=== PATIENT | female | born 1940 | race Caucasian/White ===

== ENCOUNTER 2019-11-03 10:06 | Outpatient (CLI) | payer MEDICARE, SELFPAY ==
--- NOTE | ~2019-11-03 | XR_ITS ---
EXAMINATION: XR abdomen/kub 1V INDICATION: Left-sided abdominal pain TECHNIQUE: Supine views of the abdomen were obtained on 2 radiographs. COMPARISON: None FINDINGS: A 6 mm calcification projects between the left L4 and L5 transverse processes. There appear to be subtle stones in both kidneys which measure up to 4 mm on the left. Phleboliths are noted in t he left pelvis. There is severe lumbar spondylosis. Surgical clips project over the right proximal fe mur. There appear to be changes of mesh ventral hernia repair in the upper abdomen. IMPRESSION: 1. 6 mm calcification of the mid abdomen to the left of midline, possibly left ureteral stone. Reviewed, dictated and finalized at location A.
== END 2019-11-03 10:07 | disposition home or self-care (01) ==
PROVIDERS: PCP Physician Assistant; Visit Provider Physician Assistant
DX: R10.9 Unspecified abdominal pain (principal); R93.5 Abnormal findings on diagnostic imaging of other abdominal regions, including retroperitoneum
CPT/HCPCS: 74018

== ENCOUNTER → 2020-06-12 11:18 | Outpatient (CLI) | payer MEDICARE, SELFPAY ==
--- NOTE | ~2020-06-12 | XR_ITS ---
XR lumbar spine min 4V DATE: 06/12/2020 12:36 INDICATION: Right hip pain, low back pain. TECHNIQUE: Standing AP and standing flexion, extension and neutral lateral views. Coned lateral lumbo sacral view. COMPARISON: None FINDINGS: There is diffuse osteopenia. There is severe rotatory dextroscoliosis of the lower thoracic and lumbar spine. The severe degenerative disc disease throughout the lumbar spine and moderately prominent degenerativ e disc disease at L5-S1. Chronic probable compression fracture deformities of L2, L3, L4. Sacroiliac joints are intact. 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 NSICS TEAM DIRECTOR IMPRESSION: Severe rotatory dextro scoliosis of the lower thoracic and lumbar s pine Severe multilevel degenerative disc disease Probable chronic compression fracture deformities of L2, L3, L4 Osteopenia
--- NOTE | ~2020-06-12 | XR_ITS ---
XR hip RT min 2V 06/12/2020 12:36 Indication: Right hip pain Procedure: 2 views right hip Comparison: No prior studies for comparison. Findings: Mild osteoarthritis of the right hip. No acute fracture or traumatic malalignment. There ar e surgical clips overlying the right hip no significant soft tissue abnormality. No acute abnormality of the visualized pelvic structures. Impression: 1: Mild osteoarthritis of the right hip. Reviewed, dictated and finalized at location A. VIORAL HEALTH COUNSELOR Impression: 1: Mild osteoarthritis of the right hip.
== END ==
PROVIDERS: PCP Physician Assistant; Visit Provider Nurse Practitioner Family
DX: M25.551 Pain in right hip (principal); M54.5 Low back pain; M41.86 Other forms of scoliosis, lumbar region; M41.84 Other forms of scoliosis, thoracic region; M51.36 Other intervertebral disc degeneration, lumbar region; M85.88 Other specified disorders of bone density and structure, other site
CPT/HCPCS: 72110; 73502

== ENCOUNTER → 2020-07-19 10:26 | Outpatient (CLI) | payer MEDICARE, SELFPAY ==
--- NOTE | ~2020-07-19 | US_ITS ---
US renal BI 07/19/2020 10:54 Procedure: Realtime transabdominal ultrasound of the kidneys and bladder. Indication: Abnormal renal function study Comparison: No prior studies for comparison. Findings: Renal echotexture is normal bilaterally without hydronephrosis, contour deforming mass or r enal calculus. The right kidney measures 8.9 cm and left kidney measures 8.5 cm. Bladder within norm al limits. Impression: 1: Unremarkable renal ultrasound. No stones, masses or hydronephrosis. Reviewed, dictated and finalized at location B. S AND SERVICE REPRESENTATIVE Impression: 1: Unremarkable renal ultrasound. No stones, masses or hydronephrosis.
== END ==
PROVIDERS: Visit Provider Internal Medicine Nephrology
DX: R94.4 Abnormal results of kidney function studies (principal)
CPT/HCPCS: 76775

== ENCOUNTER → 2020-11-21 10:42 | Outpatient (CLI) | payer MEDICARE, SELFPAY ==
--- NOTE | ~2020-11-21 | XR_ITS ---
XR abdomen/kub 1V DATE: 11/21/2020 13:52 INDICATION: Renal stone TECHNIQUE: AP projection, 2 views COMPARISON: 11/03/2019 KUB 07/19/2020 bilateral renal ultrasound examination FINDINGS: There are multiple calcifications overlying both renal silhouettes, suggesting bilateral ne phrolithiasis. Noncontrast CT examination would be more sensitive and accurate for detection of urin praveen tract calculi. There is a prominent amount of feces in the ascending colon, but no bowel obstruction. No visceromegaly is detected. A cardiac pacemaker lead is noted. There is dextroscoliosis and severe degenerative disc disease throughout the lumbar spine. Surgical clips overlie the right hip. IMPRESSION: Probable bilateral calcified nephrolithiasis Reviewed, dictated and finalized at Location A. Reviewed, dictated and finalized at location A.
== END ==
PROVIDERS: PCP Physician Assistant; Visit Provider Internal Medicine Nephrology
DX: N20.0 Calculus of kidney (principal); M47.816 Spondylosis without myelopathy or radiculopathy, lumbar region; M41.9 Scoliosis, unspecified
CPT/HCPCS: 74018

== ENCOUNTER 2021-11-26 10:15 | Outpatient (RCR) | payer MEDICARE, SELFPAY | END 2022-02-24 23:59 | disposition home or self-care (01) | LOC: ANHBWCAUD 10:15 | PROVIDERS: PCP Family Medicine; Visit Provider Family Medicine | DX: Z46.1 Encounter for fitting and adjustment of hearing aid (principal) | CPT/HCPCS: 92593 ==

== ENCOUNTER 2022-01-03 10:21 | Outpatient (CLI) | payer MEDICARE, SELFPAY | END 2022-01-03 10:22 | disposition home or self-care (01) | LOC: ANHBWCAUD 10:27 | PROVIDERS: PCP Family Medicine | DX: H91.93 Unspecified hearing loss, bilateral (principal) | CPT/HCPCS: 92557; 92567 ==

== ENCOUNTER → 2022-01-16 10:15 | Outpatient (CLI) | payer MEDICARE, SELFPAY ==
--- NOTE | ~2022-01-16 | DEXA_ITS ---
Bone Density Report Name: JARED WRIGHT Age: 81 Sex: Female Ethnicity: White Date of : 1940 Indication: postmenopausal; screening for osteoporosis; height loss; history of glucocorticoids; Referring Provider: Kiley, Chang Roy Study: Bone densitometry was performed. Exam Date: January 16, 2022 Accession number: [id number] Bone Density: Region BMD T-score Z-score Classification AP Spine (L1, L2) 1.113 1.2 3.9 Normal Femoral Neck (Left) 0.620 -2.1 0.4 Osteopenia Total Hip (Left) 0.745 -1.6 0.7 Osteopenia Femoral Neck (Right) 0.593 -2.3 0.2 Osteopenia Total Hip (Right) 0.726 -1.8 0.5 Osteopenia Total Hip Mean 0.736 -1.7 0.6 Osteopenia World Health Organization criteria for BMD impression classify patients as: Normal (T-score at or above -1.0), Osteopenia (T-score between -1.0 and -2.5), or Osteoporosis (T-score at or below -2.5). 10-year Fracture Risk: FRAX not reported because: Treated for osteoporosis Clinical Information Provided by Patient: Has taken Glucocorticoids Is being treated for osteoporosis Has used the following medications: Fosamax (i.e. alendronate), Vitamin D, Calcium Patient maximum height was 63 Menopause Age: 47 Does not regularly consume dairy products Drinks caffeinated beverages Onset of menses at age 12 Number of children 2 Impression: The patient has low bone mass, based on the Right Femoral Neck T-score. The patient has risk factors, including: history of glucocorticoid therapy. Discussion: It is important to ask patients whether they are taking their medications and to encourage continued and appropriate compliance with their osteoporosis therapies to reduce fracture risk. It is also important to review their risk factors and encourage appropriate calcium and vitamin D intakes, exercise, fall prevention and other lifestyle measures. Follow-Up: Consider a repeat BMD and Vertebral Fracture Assessment (VFA) exam in 2 years or sooner if medically necessary, to reassess this patient's status. Reported by: [facility] on 01/16/2022 11:11:00 AM. Reviewed, dictated and finalized at location ALino MALIN
== END ==
PROVIDERS: PCP Family Medicine; Visit Provider Family Medicine
DX: Z78.0 Asymptomatic menopausal state (principal); M85.89 Other specified disorders of bone density and structure, multiple sites
CPT/HCPCS: 77080

== ENCOUNTER 2022-10-28 10:11 | Outpatient (RCR) | payer MEDICARE, SELFPAY | END 2023-01-26 23:59 | disposition home or self-care (01) | LOC: ANHBWCAUD 10:11 | PROVIDERS: PCP Family Medicine; Visit Provider Family Medicine | DX: Z46.1 Encounter for fitting and adjustment of hearing aid (principal) | CPT/HCPCS: V5267 ==

== ENCOUNTER 2025-01-17 10:09 | Outpatient (CLI) | payer MEDICARE, SELFPAY ==
--- OUTSIDE RECORDS SUMMARY | 2025-01-17 10:52 | XMS_ITS | Encounter Summary ---
Author Organization [facility] Address [address] [place] [address] Phone Care Team Providers Care Logger Name Role Phone Mario Franklin MD Primary Care Provider + Unknown, Notinfile Primary Care Provider Unavail able Mario Franklin MD Primary Care Provider + Unknown, Notinfile Primary Care Provider Unavail able Sandra, Aften L. CABLE FORMER Primary Care Provider [phone] Unknown, Notinfile Primary Care Provider Unavail able No, Physician Primary Care Provider [phone] Unknown, Notinfile Primary Care Provider Unavail able Sandra, Aften L. CABLE FORMER Primary Care Provider [phone] Unknown, Notinfile Primary Care Provider Unavail able Sandra, Aften L. CABLE FORMER Primary Care Provider [phone] Unknown, Notinfile Primary Care Provider Unavail able Sandra, Aften L. CABLE FORMER Primary Care Provider [phone] Unknown, Notinfile Primary Care Provider Unavail able Sandra, Aften L. CABLE FORMER Primary Care Provider [phone] Unknown, Notinfile Primary Care Provider Unavail able Unknown, Notinfile Primary Care Provider Unavail able Omer Guerrero Primary Care Provider [phone] Chang Cao MD Primary Care Provider [phone] Chang Cao MD Primary Care Provider [phone] Omer Guerrero Primary Care Provider Chang Cao MD Primary Care Provider Alena Meza RN Unavailable Unavailable Brittany Tucker RN Unavailable Unavaila Hipolito Lewis MD Primary Care Provider [phone] Nilesh Beaulieu MD Unavailable Nick Owen RN Unavailable [phone] Encounter Details Date Type Department Care Team (Late st Contact Info) Description 04/08/2017 Orders Only [facility] Provider, MD Cee [address] [place] [id number] Social History Tobacco Use Types Packs/Day Years Used Date Smoking Tobacco: Never Assessed Comments Unknown Sex and Gender Information Value Date Recorded Sex Assigned at Not on file Legal Sex Female 2:05 AM LANDCARE FACILITATOR Gender Identity Female 06/09/2023 3:00 PM LANDCARE FACILITATOR Sexual Orientation Not on file documented as of this encounter Plan of Treatment Not on file documented as of this encounter Procedures Procedure Name Priority Date/Time Associated Diagnosis Comments CARDIOLOGY REPORT 04/08/2017 documented in this encounter Results * CARDIOLOGY REPORT (04/08/2017) Anatomical Region Laterality Modality Other Narrative 04/08/2017 Ordered by an unspecified provider. Historical Provider [facility] CASSIDY RODRIGUEZ Final Result documented in this encounter Visit Diagnoses Not on filedocumented in this encounter Additional Health Concerns Infection Onset Date Last Indicated Resolved Time Exposure, COVID-19 Comment:Added automatically based on COVID19 lab answers indicating exposure risk 05/12/2022 05/12/2022 05/22/2022 3:[address] COVID: Suspected 05/12/2022 05/12/2022 05/12/2022 5:10 PM LANDCARE FACILITATOR documented as of this encounter Care Teams Logger Relationship Specialty Start Date End Date Mario Franklin MD PCP - General 03/09/17 08/16/17 Unknown, Notinfile PCP - General 08/17/17 10/05/17 Mario Franklin MD PCP - General Family Medicine 10/06/17 12/16/17 Unknown, Notinfile PCP - General 12/17/17 12/24/17 Gabriele Flores, CABLE FORMER [address] [facility] [address] [place] [address] PCP - General Nurse Practitioner 12/25/17 12/27/17 Unknown, Notinfile PCP - General 12/28/17 01/28/18 No, Physician PCP - General 01/29/18 02/02/18 Unknown, Notinfile PCP - General 02/03/18 02/03/18 Gabriele Flores, CABLE FORMER [address] [facility] [address] [place] [address] PCP - General Nurse Practitioner 02/04/18 02/04/18 Unknown, Notinfile PCP - General 02/05/18 02/10/18 Gabriele Flores, CABLE FORMER [address] [facility] [address] [place] [address] PCP - General Nurse Practitioner 02/11/18 02/18/18 Unknown, Notinfile PCP - General 02/19/18 04/20/18 Gabriele Flores, CABLE FORMER [address] [facility] [address] [place] [address] PCP - General Nurse Practitioner 04/21/18 10/18/18 Unknown, Notinfile PCP - General 10/19/18 10/25/18 Gabriele Flores CABLE FORMER PCP - General Nurse Practitioner 10/26/18 12/19/19 Unknown, Notinfile PCP - General 12/20/19 05/22/20 Unknown, Notinfile PCP - General 05/23/20 02/18/21 Omer Guerrero, PA [address] [place] [address] PCP - General Physician Basketball Assembler 02/19/21 03/19/21 Chang Cao MD [address] [facility] [address] [facility] [address] [place] [address] PCP - General Family Medicine 03/20/21 04/11/21 Chang Cao MD [address] [facility] [address] [facility] [address] [place] [address] PCP - General 04/12/21 04/29/21 Omer Guerrero, PA [address] [facility] [address] [facility] [address] [facility] [address] [place] [address] PCP - General 04/30/21 05/19/21 Chang Cao MD [address] [facility] [address] [facility] [address] [address] PCP - General Family Medicine 05/20/21 05/04/23 Hipolito Chowdhury MD [address] [place] [address] PCP - General Family Medicine 05/05/23 Alena Meza, wheel borer Failure Coordinator 01/07/22 Brittany Tucker, wheel borer Failure Coordinator 07/15/22 Nilesh Beaulieu MD [address] [place] [address] Consulting Physician Urology 09/15/24 Nick Owen, RN [address] [place] [address] Hair Colorist 09/16/24 10/11/24 documented as of this encounter
--- OUTSIDE RECORDS SUMMARY | 2025-01-17 10:52 | XMS_ITS | Clinical Summary ---
Author Organization [facility] Address [address] [place] [address] Care Team Providers Care Director Project Management Name Role Phone None, Provider MD Primary Care Provider Unavaila ble Allergies No known active allergies Medications menthol 5 % Patch Ac tive Methylcellulose, Laxative, (CITRUCEL FIBERSHAKE OR) 1 capsule. Acti ve Multiple Vitamins-Minerals (MULTIVITAMIN ADULT EXTRA C OR) 1 tablet. Ac tive TRIAMCINOLONE ACETONIDE 0.1% CREAM/0.1% OINTMENT MIXTURE 1 applicator. Active acetaminophen controlled release (TYLENOL 8 HOUR ARTHRITIS PAIN) 650 MG Tab CR Active aspirin 81 MG tablet Active Calcium Carb-Cholecalcifer ol (CALCIUM-VITAMIN D) 500-200 MG-UNIT tablet 1 tablet. Active loratadine 10 MG tablet Take by mouth daily. 4 Active sodium chloride (OCEAN NASAL SPRAY) 0.65 % nasal spray 1 Active aluminum hydroxide-mag trisilicate 80-20 MG Chew Tab Chew 1 tablet by mouth. Active oyster shell calcium-vitamin D 500-200 MG-UNIT tablet 1 tablet 2 (two) times daily. Active Brouiql-Fopoupr-Np thyl Regino (MEDICATED PAIN RELIEVING) 1.2-5.7-6.3 % Patch Active fluticasone propionate 50 MCG/ACT nasal sprayIndications:A llergic rhinitis, unspecified seasonality, unspecified trigger 2 sprays by Nasal route daily. 16 g 5 9 Active losartan 50 MG tabletIndications: Mitral valve disorder Take 0.5 tablets (25 mg total) by mouth daily. 90 tablet 1 9 Active sumatriptan 25 MG tabletIndications: Chronic migraine without aura without status migrainosus, not intractable Take 1 tablet (25 mg total) by mouth 2 (two) times daily as needed. 30 tablet 5 9 Active metoprolol tartrate 25 MG tabletIndications: 1 twice daily am and pm. Take 1 tablet (25 mg total) by mouth daily. Indications: 1 twice daily am and pm. 90 tablet 1 9 Active estradiol (ESTRACE VAGINAL) 0.1 MG/GM vaginal creamIndications:V aginal dryness, menopausal Place 0.5 g vaginally twice a week. 42.5 g 0 Active LOVASTATIN 20 MG tabletIndications: Hyperlipidemia, unspecified hyperlipidemia type TAKE ONE TABLET BY MOUTH ONCE DAILY WITH SUPPER 90 tablet 2 0 Active OMEPRAZOLE 40 MG capsuleIndications :Gastroesophageal reflux disease without esophagitis TAKE ONE CAPSULE BY MOUTH ONCE DAILY 90 capsule 0 Active traMADol 50 MG tabletIndications: Chronic Pain Indications: Chronic Pain TAKE 1 TO 2 TABLETS BY MOUTH EVERY 6 HOURS NEEDED FOR PAIN DUE FOR APPT BEFORE NEXT REFILL 180 tablet 0 Active ALENDRONATE 70 MG tabletIndications: Osteoporosis TAKE ONE TABLET BY MOUTH EVERY 7 DAYS 4 tablet 0 Active LEVOTHYROXINE 50 MCG tabletIndications: 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 TAKE 1 AND 1/2 TABLETS BY MOUTH EVERY MORNING 135 tablet 0 Active MELOXICAM 15 MG tabletIndications: Primary osteoarthritis of both knees TAKE 1 TABLET BY MOUTH EVERY DAY 30 tablet 1 Active Active Problems Problem Noted Date Diagnosed Date ICD (implantable cardioverter-defibrillator) in place 04/19/2019 CKD (chronic kidney disease) 11/19/2018 Pacemaker 11/19/2018 H/O mitral valve repair 11/19/2018 Primary osteoarthritis of left knee 10/26/2018 Overview (01/26/2019): Overview: Added automatically from request for surgery [id number] Allergic rhinitis, unspecifi ed seasonality, unspecified trigger 05/25/2018 Chronic migraine without aur a without status migrainosus, not intractable 05/25/2018 Gastroesophageal reflux disease without esophagi tis 05/25/2018 NICM (nonischemic cardiomyopathy) ([facility]) 04/08/2018 Decreased GFR 07/21/2017 Presence of prosthetic heart valve 03/11/2017 Overview (05/25/2018): Defibrillator Obesity 12/04/2016 Physical deconditioning 12/04/2016 Dyspnea on exertion 09/15/2016 Nonsustained ventricular tachycardia ([facility]) 04/03/2015 ROSA ISELA (obstructive sleep apnea) 07/17/2014 CHF (congestive heart failure) ([facility]) 07/17/2014 Chronic systolic heart failure ([facility]) 07/09/2014 Hyperlipidemia 05/13/2012 Hypertension 05/13/2012 Hypothyroidism 05/13/2012 Osteoarthrosis 05/13/2012 Mitral valve disorder 04/27/2012 LV dysfunction 04/15/2012 Atherosclerosis of arteries of extremities 01/21 Immunizations Immunization Administration Dates Next Due Influenza (Generic) 03/09/2018,02/19/2015 Influenza Adult (Generic) 02/15/2019,02/20/2014, 02/11/2013,03/03/2012 Pneumococcal (Pneumovax 23) 11/18/2017, 4 Pneumococcal (Prevnar 13) 04/13/2014 Family History Medical History Relation Comments Breast Cancer Mother Colon Cancer Mother Heart Disease Paternal Grandfather Relation Status Comments Father Mother Paternal Grandfather Social History Tobacco Use Types Packs/Day Years Used Date Smoking Tobacco: Never Smokeless Tobacco: Never Alcohol Use Standard Drinks/Week Comments No 0 (1 standard drink = 0.6 oz pur e alcohol) AUDIT-C Answer Date Recorded Frequency of Alcohol Consumption Never 05/25/2018 Average Number of Drinks Not on file 018 Frequency of Binge Drinking Not on file 05/08 Comments No Sex and Gender Information Value Date Recorded Sex Assigned at Not on file Legal Sex Female 9:55 PM CDT Gender Identity Not on file Sexual Orientation Not on file Last Filed Vital Signs Vital Sign Reading Time Taken Comments Blood Pressure 122/90 06/29/2019 10:12 AM FACILITY TECHNICIAN Pulse 77 06/29/2019 10:12 AM FACILITY TECHNICIAN Temperature 36.7 C (98 F) 06/29/2019 10:12 AM FACILITY TECHNICIAN Respiratory Rate 20 06/29/2019 10:12 AM FACILITY TECHNICIAN Oxygen Saturation 98% 06/29/2019 10:12 AM FACILITY TECHNICIAN Inhaled Oxygen Concentration - - Weight 93 kg (205 lb) 06/29/2019 10:12 AM FACILITY TECHNICIAN Height 160 cm (5' 3) 06/29/2019 10:12 AM FACILITY TECHNICIAN Body Mass Index 36.31 06/29/2019 10:12 AM FACILITY TECHNICIAN Plan of Treatment Health Maintenance Due Date Last Done Comments ASCVD Statin 1940 DTaP, Tdap and Td Vaccines (1 - Tdap) 1957 Zoster Vaccines (1 of 2) 1988 Annual Medicare Wellness Visit 2003 RSV Immunization or 60+ Years (1 - 1-dose 75+ series) 2013 ASCVD LDL 06/29/2020 06/29/2019, 06/08, 06/23/2018, Additional history exists COVID-19 Vaccine ( season) 2024 07/13/2020 Pneumococcal Vaccine: 50+ Years Completed 11/18/2017, 04/13/2014, 04/13/2014 Meningococcal B Vaccine Aged Out No l onger eligible based on patient's age to complete this topic Meningococcal Vaccine Aged Out No james melani eligible based on patient's age to complete this topic RSV Immunizations Under 20 Months Aged Out No longer eligible based on patient's age to complete this topic Procedures Procedure Name Priority Date/Time Associated Diagnosis Comments LIPID PANEL Routine 06/29/2019 9:04 AM FACILITY TECHNICIAN Hyperlipidemia, unspecified hyperlipidemia type from Last 3 Months or Most Recently Relevant to Health Maintenance Results * (ABNORMAL) LIPID PANEL (06/29/2019 9:04 AM FACILITY TECHNICIAN) CHOLESTEROL 206(H) <200 MG/DL 06/29/2019 10:36 AM FACILITY TECHNICIAN [facility] TRIGLYCERIDES 203(H) <150 MG/DL 06/29/2019 10:36 AM FACILITY TECHNICIAN [facility] HDL 64 >40.0 MG/DL 06/29/2019 10:36 AM [facility] LDL (CALCULATED) 101(H) <100 MG/DL 06/29/2019 10:36 AM [facility] NON HDL CHOLESTEROL 142(H) <130 MG/DL 06/29/2019 10:36 AM [facility] Comment: NOTE: WHEN THE TRIGLYCERIDES ARE >200 mg/dL, NON HDL C IS A SECONDARY TARGET OF THERAPY, WITH A GOAL 30 mg/dL HIGHER THAN THE IDENTIFIED LDL C GOAL. CHOL/HDL RATIO 3.2 0.0 - 4.5 06/29/2019 10:36 AM [facility] VLDL CALCULATION 41 5 - 55 MG/DL 06/29/2019 10:36 AM [facility] LIPID INTERPRETATION 06/29/2019 10:36 AM [facility] Comment: [facility] CONCENSUS REPORT RECOMMENDATIONS: ADULT CHILD LOW RISK: CHOLESTEROL <200 <170 TRIGLYCERIDE <150 --- HDL >=60 --- LDL <100 <110 BORDERLINE: CHOLESTEROL 200-239 170-199 TRIGLYCERIDE 150-199 --- HDL 40-59 --- LDL 100-159 110-129 HIGH RISK: CHOLESTEROL >=240 >=200 TRIGLYCERIDE >=200 --- HDL <40 --- LDL >=160 >=130 06/29/2019 9:04 AM FACILITY TECHNICIAN Gabriele Flores RELEASE ENGINEER LABORATORY Final Result [facility] [address] [place] [address], from Last 3 Months or Most Recently Relevant to Health Maintenance Insurance MED [facility] MEDICARE Care Teams Director Project Management Relationship Specialty Start Date End Date None, Provider, PCP - General 12/30/19
--- OUTSIDE RECORDS SUMMARY | 2025-01-17 10:52 | XMS_ITS | Encounter Summary ---
Author Organization [facility] Healthcare Address [address] [place] [address] Care Team Providers Care International Affairs Vice President Name Role Phone Alena Meza RN Unavailable Unavailable Brittany Tucker RN Unavailable Unavaila Hipolito Lewis MD Primary Care Provider [phone] Nilesh Beaulieu MD Unavailable Reason for Visit * Reason Onset Date Comments Additional Services Or Orders 01/12/2025 Encounter Details Date Type Department Care Team (Late st Contact Info) Description 01/12/2025 Telephone [facility]icians [address] [place] [address] Hipolito Chowdhury MD [address] [place] [address] [place] [address] Additional Services Or Orders Social History Tobacco Use Types Packs/Day Years Used Date Smoking Tobacco: Never Passive Smoke Exposure: Past Smokeless Tobacco: Never Alcohol Use Standard Drinks/Week Comments No 0 (1 standard drink = 0.6 oz pur e alcohol) [facility] Utilities Answer Date Recorded In the past 12 months has e electric, gas, oil, or water company threatened to shut off services in your home? No 10/12/2024 Social Connection and Isolation Panel Answer Date Recorded In a typical week, how many times do you talk on the phone with family, friends, or neighbors? More than three times a week 10/12/2024 How often do you get togethe r with friends or relatives? More than three times a week 10/12/2024 How often do you attend [facility] or yazdanism services? Never 10/12/2024 Do you belong to any clubs o r organizations such as alevism groups, unions, fraternal or athletic groups, or school groups? No 10/12/2024 How often do you attend meet ings of the clubs or organizations you belong to? Never 10/12/2024 Are you , , di vorced, , never , or living with a partner? 10/12/2024 AUDIT-C Answer Date Recorded Q1: How often do you have a drink containing alcohol? Never 05/06/2023 Q2: How many drinks containi ng alcohol do you have on a typical day when you are drinking? Patient does not drink Q3: How often do you have si x or more drinks on one occasion? Never 05/06/2023 Overall Financial Resource Strain (CARDIA) Answe r Date Recorded How hard is it for you to pa y for the very basics like food, housing, medical care, and heating? Not very hard 10/12/2024 PHQ-2 Answer Date Recorded PHQ-2 Total Score (If total score is 3 or more points, staff should administer the PHQ-9) 0 05/03/2024 Hunger Vital Sign Answer Date Recorded Within the past 12 months, y ou worried that your food would run out before you got the money to buy more. Never true 10/13/19 25 Within the past 12 months, t he food you bought just didn't last and you didn't have money to get more. Never true 10/12/2024 PRAPARE - Transportation Answer Date Re corded In the past 12 months, has l ack of transportation kept you from medical appointments or from getting medications? No 12/2024 In the past 12 months, has l ack of transportation kept you from meetings, work, or from getting things needed for daily living? No 10/12/2024 Housing Stability Vital Sign Answer Abdullahi e Recorded In the last 12 months, was t here a time when you were not able to pay the mortgage or rent on time? No 10/12/2024 In the past 12 months, how m any times have you moved where you were living? 0 10/12/2024 At any time in the past [address] [facility], were you homeless or living in a senior care (including now)? No 10/12/2024 Personal Safety Answer Date Recorded Have you ever been in or are you currently in a harmful physical or emotional relationship or is someone making you feel afraid or unsafe? Denies 09/11/2024 Comments No Sex and Gender Information Value Date Recorded Sex Assigned at Not on file Legal Sex Female 2:05 AM ELECTRICAL ELECTRONICS ENGINEER Gender Identity Female 06/09/2023 3:00 PM ELECTRICAL ELECTRONICS ENGINEER Sexual Orientation Not on file Occupation Industry Job Start Date Job End Date retired Not on file Not on file Not on file documented as of this encounter Miscellaneous Notes * Telephone Encounter - Augusto Burkett - 01/12/2025 1:38 PM CDT Medical Question/Miscellaneous Caller???s Concern: Spoke with [facility] calling with patient there to be seen and they do not have orders for her right knee and back . Warm transfer to backline Does message need to be routed? No documented in this encounter Plan of Treatment Not on file documented as of this encounter Visit Diagnoses Not on filedocumented in this encounter Care Teams International Affairs Vice President Relationship Specialty Start Date End Date Hipolito Chowdhury MD [address] [place] [address] PCP - General Family Medicine 05/05/23 Alena Meza, linotypist Failure Coordinator 01/07/22 Brittany Tucker, linotypist Failure Coordinator 07/15/22 Nilesh Beaulieu MD [address] [place] [address] Consulting Physician Urology 09/15/24 documented as of this encounter
--- OUTSIDE RECORDS SUMMARY | 2025-01-17 10:52 | XMS_ITS | Encounter Summary ---
Author Organization [facility] Healthcare Address [address] [place] [address] Care Team Providers Care Section Housekeeper Name Role Phone Alena Meza RN Unavailable Unavailable Brittany Tucker RN Unavailable Unavaila Hipolito Lewis MD Primary Care Provider [phone] Nilesh Beaulieu MD Unavailable Encounter Details Date Type Department Care Team (Late st Contact Info) Description 01/15/2025 Results Follow-Up [facility] of [address] [address] Hipolito Chowdhury MD [address] [place] [id number] Lipid panel, Comprehensive metabolic panel, CBC with auto differential, Additional followed-up results: 2 Social History Tobacco Use Types Packs/Day Years Used Date Smoking Tobacco: Never Passive Smoke Exposure: Past Smokeless Tobacco: Never Alcohol Use Standard Drinks/Week Comments No 0 (1 standard drink = 0.6 oz pur e alcohol) [facility] Utilities Answer Date Recorded In the past 12 months has [employer] electric, gas, oil, or water company threatened [...] week 10/12/2024 How often do you attend [facility] or taoism services? Never 10/12/2024 Do you belong to any clubs o r organizations such as samaritan groups, unions, fraternal or athletic groups, or [...] any time in the past 12 m [facility], were you homeless or living in a penitentiary (including now)? No 10/12/2024 Personal Safety Answer Date Recorded Have you ever been in or are you currently in a harmful physical or emotional relationship or is someone making you feel afraid or unsafe? Denies 09/11/2024 Comments No Sex and Gender Information Value Date Recorded Sex Assigned at Not on file Legal Sex Female 2:05 AM [employer] SCOUT Gender Identity Female 06/09/2023 3:00 PM [employer] Sexual Orientation Not on file Occupation Industry Job Start Date Job End Date retired Not on file Not on file Not on file documented as of this encounter Plan of Treatment Not on file documented as of this encounter Visit Diagnoses Not on filedocumented in this encounter Care Teams Section Housekeeper Relationship Specialty Start Date End Date Hipolito Chowdhury MD [address] [place] [address] PCP - General Family Medicine 05/05/23 Alena Meza, nutrition associate Failure Coordinator 01/07/22 Brittany Tucker, nutrition associate Failure Coordinator 07/15/22 Nilesh Beaulieu MD [address] [place] [address] Consulting Physician Urology 09/15/24 documented as of this encounter
--- OUTSIDE RECORDS SUMMARY | 2025-01-17 10:52 | XMS_ITS | Encounter Summary ---
Author Organization [facility] Healthcare Address [address] [place] [address] Care Team Providers Care Coal Trimmer Machine Operator Name Role Phone Alena Meza RN Unavailable Unavailable Brittany Tucker RN Unavailable Unavaila Hipolito Lewis MD Primary Care Provider [phone] Nilesh Beaulieu MD Unavailable Encounter Details Date Type Department Care Team (Late st Contact Info) Description 11/15/2024 Results Follow-Up [facility] [place] [address] [place] [address] Shagufta Leo, SOFTWARE INTEGRATION DEVELOPER [address] [place] [address] Urine culture Urine, clean voided Social History Tobacco Use Types Packs/Day Years Used Date Smoking Tobacco: Never Passive Smoke Exposure: Past Smokeless Tobacco: Never Alcohol Use Standard Drinks/Week Comments No 0 (1 standard drink = 0.6 oz pur e alcohol) [facility] Utilities Answer Date Recorded In the past 12 months has [employer], gas, oil, or water [employer] threatened to shut off services in your [...] week 10/12/2024 How often do you attend [facility] or adventism services? Never 10/12/2024 Do you belong to any clubs o r organizations such as adventism groups, unions, fraternal or athletic groups, or [...] any time in the past 12 m [facility], were you homeless or living in a snf (including now)? No 10/12/2024 Personal Safety Answer Date Recorded Have you ever been in or are you currently in a harmful physical or emotional relationship or is someone making you feel afraid or unsafe? 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 documented in this encounter Plan of Treatment Not on file documented as of this encounter Visit Diagnoses Not on filedocumented in this encounter Care Teams Coal Trimmer Machine Operator Relationship Specialty Start Date End Date Hipolito Chowdhury MD [address] [place] [address] PCP - General Family Medicine 05/05/23 Alena Meza, adjunct political science instructor Failure Coordinator 01/07/22 Brittany Tucker, adjunct political science instructor Failure Coordinator 07/15/22 Nilesh Beaulieu MD [address] [place] [address] Consulting Physician Urology 09/15/24 documented as of this encounter
--- OUTSIDE RECORDS SUMMARY | 2025-01-17 10:52 | XMS_ITS | Encounter Summary ---
Author Organization [facility] Healthcare Address [address] [place] [address] Care Team Providers Care Network Security Administrator Name Role Phone Alena Meza RN Unavailable Unavailable Brittany Tucker RN Unavailable Unavaila Hipolito Lewis MD Primary Care Provider [phone] Nilesh Beaulieu MD Unavailable Encounter Details Date Type Department Care Team (Late st Contact Info) Description 01/13/2025 Orders Only [facility] of [address] [place] [address] Hipolito Chowdhury MD [address] [place] [address] Social History Tobacco Use Types Packs/Day Years Used Date Smoking Tobacco: Never Passive Smoke Exposure: Past Smokeless Tobacco: Never Alcohol Use Standard Drinks/Week Comments No 0 (1 standard drink = 0.6 oz pur e alcohol) [facility] Utilities Answer Date Recorded In the past 12 months has [employer], gas, oil, or water [employer] threatened to shut off services in your [...] week 10/12/2024 How often do you attend [facility] or holiness services? Never 10/12/2024 Do you belong to any clubs o r organizations such as hoahaoism groups, unions, fraternal or athletic groups, or [...] time in the past [address] [facility], were you homeless or living in a prison (including now)? No 10/12/2024 Personal Safety Answer Date Recorded Have you ever been in or are you currently in a harmful physical or emotional relationship or is someone making you feel afraid or unsafe? Denies 09/11/2024 Comments No Sex and Gender Information Value Date Recorded Sex Assigned at Not on file Legal Sex Female 2:05 AM DRAFTER AUTOMOTIVE DESIGN Gender Identity Female 06/09/2023 3:00 PM DRAFTER AUTOMOTIVE DESIGN Sexual Orientation Not on file Occupation Industry Job Start Date Job End Date retired Not on file Not on file Not on file documented as of this encounter Ordered Prescriptions Prescription Sig Dispense Quantity Refills Last Filled Start Date End Date methylPREDNISolone (MEDROL DOSEPACK) 4 mg Dosepack Take as directed on package. 21 tablet 01/13/2025 5 documented in this encounter Plan of Treatment Not on file documented as of this encounter Visit Diagnoses Not on filedocumented in this encounter Care Teams Network Security Administrator Relationship Specialty Start Date End Date Hipolito Chowdhury MD [address] [place] [address] PCP - General Family Medicine 05/05/23 Alena Meza, software support analyst Failure Coordinator 01/07/22 Brittany Tucker, software support analyst Failure Coordinator 07/15/22 Nilesh Beaulieu MD [address] [place] [address] Consulting Physician Urology 09/15/24 documented as of this encounter
--- OUTSIDE RECORDS SUMMARY | 2025-01-17 10:52 | XMS_ITS | Clinical Summary ---
Author Organization [facility] Address [address] [place] [address] Care Team Providers Care Math And Physics Instructor Name Role Phone Alena Meza RN Unavailable Unavailable Brittany Tucker RN Unavailable Unavaila Hipolito Lewis MD Primary Care Provider [phone] Nilesh Beaulieu MD Unavailable Allergies No known active allergies Medications multivitamin capsuleIndication s:Vitamin Deficiency Prevention Take 1 capsule by mouth every morning Phytomulti (Metagenics) Active aspirin 81 mg enteric coated tabletIndications :Pacemaker/ Defibrillator Take 1 tablet (81 mg total) by mouth every morning Active acetaminophen (TYLENOL) 500 mg tablet Take 2 tablets (1,000 mg total) by mouth every 6 (six) hours as needed for pain Takes two tabs usually around mid day for arthritis or sometimes in middle of night Active metoprolol XL (TOPROL-XL) 50 mg extended release tablet TAKE 1 TABLET BY MOUTH EVERY DAY 90 tablet 3 024 Active levothyroxine (SYNTHROID) 75 mcg tabletIndications :Hypothyroidism, unspecified Take 1 tablet (75 mcg total) by mouth daily 100 tablet 1 024 Active albuterol HFA (PROVENTIL HFA,VENTOLIN HFA,PROAIR HFA) 90 mcg/actuation inhalerIndication s:Shortness of breath Inhale 2 puffs every 4 (four) hours as needed for wheezing or shortness of breath 1 each 025 Active irbesartan (AVAPRO) 150 mg tablet Take 1 tablet (150 mg total) by mouth nightly 90 tablet 3 025 2025 Active miconazole 2 % powderIndications :tinea corporis Apply topically 2 (two) times a day 70 g 025 Active hydroCHLOROthiazi de 12.5 mg tablet Take 1 tablet (12.5 mg total) by mouth daily 30 tablet 11 025 2025 Active UNABLE TO FIND Metagenics UltraFlora Balance Probiotic Active calcium-magnesium -zinc 333-133-5 mg tablet Take 1 tablet by mouth daily Active omeprazole (PriLOSEC) 40 mg capsule TAKE 1 CAPSULE (40 MG TOTAL) BY MOUTH EVERY MORNING. 90 capsule 1 025 Active lovastatin (MEVACOR) 40 mg tabletIndications :Essential (primary) hypertension TAKE 1 TABLET BY MOUTH EVERY DAY 90 tablet 1 025 Active cetirizine (ZyrTEC) 10 mg tablet Take 1 tablet (10 mg total) by mouth daily Active dicyclomine (BENTYL) 10 mg capsule Take 1 capsule (10 mg total) by mouth 3 (three) times a day as needed (abdominal cramping) 90 capsule 025 Active traMADoL (ULTRAM) 50 mg tabletIndications :Primary osteoarthritis of left knee Take 1-2 tablets by mouth every 8 hours as needed for arthritis pain. Maximium of 4 tablets (200mg/day) every 24 hours. 120 tablet 025 Active methylPREDNISolon e (MEDROL DOSEPACK) 4 mg Dosepack Take as directed on package. 21 tablet 025 2024 Active mag/aluminum/sod bicarb/alginc (GAVISCON ORAL) Take 1 tablet by mouth as needed (Heartburn) 2024 Discontinued(T herapy completed) magnesium oxide 400 mg magnesium tabletIndications :hypomagnesemia Take 1 tablet by mouth every morning 023 2024 Discontinued(T herapy completed) fexofenadine (ALBERTA) 180 mg tabletIndications :Seasonal Allergic Rhinitis Take 1 tablet (180 mg total) by mouth every morning 2024 Discontinued(T herapy completed) lovastatin (MEVACOR) 40 mg tabletIndications :Essential (primary) hypertension TAKE 1 TABLET BY MOUTH EVERY DAY 100 tablet 025 2024 Discontinued estradioL (VAGIFEM) 10 mcg tabletIndications :Postmenopausal Urethral Atrophy Insert 1 tablet (10 mcg total) into the vagina 2 (two) times a week 24 tablet 025 2024 Discontinued(T herapy completed) traMADoL (ULTRAM) 50 mg tabletIndications :Primary osteoarthritis of left knee Take 1 tablet (50 mg total) by mouth every 8 (eight) hours as needed for pain 60 tablet 025 2024 Discontinued(R eorder) Active Problems Problem Noted Date Diagnosed Date Asymptomatic menopausal state 01/15/2025 Assessment & Plan (01/15/2025 11:53 AM CDT): Reviewed bone denisty and will montior ersponse. Reviewed calcium and vitamin d supplementation. Sensorineural hearing loss (SNHL) of both ears 0 01/15/2025 Assessment & Plan (01/15/2025 11:53 AM CDT): Continues f/u with audilogy and montio rerspnose. Hypertension, essential 01/15/2025 Assessment & Plan (01/15/2025 11:53 AM CDT): Continues on hctz, irbesartan and metoprolol xl and will follow resopnse. Degeneration of intervertebr al disc of lumbar region with discogenic back pain 01/15/2025 Assessment & Plan (01/15/2025 11:54 AM CDT): Lumbar ddd and supportive care measures. Reviweed medrol and add pt and chiro referral for supportive care. No evidence of cauda equina. Irritable bowel syndrome 01/15/2025 Assessment & Plan (01/15/2025 11:54 AM CDT): Continues on dicyclomine. No blood in the stools, no blood in the urine. Cystitis 09/28/2024 Assessment & Plan (09/28/2024 10:38 AM CDT): Continue to push fluids and enocurage resumption of estradiol and f/u with urology. Right middle lobe pulmonary nodule 09/28/2024 BMI 37.0-37.9, adult 09/28/2024 Pseudomonas urinary tract infection 09/15/[address] 09/15/2024 Assessment & Plan (09/28/2024 10:38 AM CDT): Repeat CT chest in 3 months and monitor respnose. Acute cystitis with hematuria 09/11/2024 Medicare annual wellness visit, subsequent 05/03 Assessment & Plan (05/03/2024 11:00 AM PICK PULLING MACHINE OPERATOR): Focus of exam is prevnetative in nature. Reviewed iimmunizationis, reviewed sun/skin cancer screening Reivewede fall prevention. Reviewed age and comorbid appropriate screening recommendations. Continue f/u with urology. Lactose intolerance 05/03/2024 Assessment & Plan (05/03/2024 11:01 AM PICK PULLING MACHINE OPERATOR): NOting some post dairy gi intolerance and will check for lactose intolerance as she associates with dairy but it is something she truly enjoys eating and drinking. Other gastritis without bleeding 05/03/2024 Assessment & Plan (05/03/2024 11:01 AM PICK PULLING MACHINE OPERATOR): As above. Severe obesity (BMI 35.0-39.9) with comorbidity 05/03/2024 Assessment & Plan (09/28/2024 10:39 AM CDT): Encourage helathy food choices and will monitor response. Assessment & Plan (05/03/2024 11:01 AM PICK PULLING MACHINE OPERATOR): Encourage 150min/week aerobic exericse. Healthy food chcioes BMI 38.0-38.9,adult 05/03/2024 Severe obesity 02/02/2024 Pelvic floor dysfunction in female 01/08/2024 Assessment & Plan (01/08/2024 5:26 PM CDT): On examination, we elicited pain to palpation of the pelvic floor muscles. We discussed the role that her pelvic floor muscle dysfunction is likely playing in her urinary symptoms. Management options for levator ani/obturator pain/spasm were discussed including pelvic floor physical therapy and vaginal icing. She will consider PFPT pending transportation, vaginal icing supplies were provided. Given her CKD, she is not a good candidate for NSAIDs. Vaginal atrophy 01/08/2024 Assessment & Plan (01/08/2024 5:28 PM CDT): -We discussed use of vaginal estrogen cream. I discussed the WHI study and the risks of systemic estrogen use and explained that with vaginal application minimal systemic absorption of estrogen occurs. We discussed vaginal atrophy and the effect a hypoestrogenic state can have on vaginal dryness, dyspareunia, risk of erosion, recurrent UTIs, and cystitis., I recommend starting vaginal estrogen cream nightly x 2 weeks and then decreasing to 2-3x/week.. At the end of the discussion the patient desires to use vaginal estrogen. -she has estrogen cream at home but finds applicator difficult to use, recommend switching to vaginal estrogen suppository (Imvexxy). Patient is amenable and Rx sent. IC (interstitial cystitis) 03/03/2023 Morbid (severe) obesity due to excess calories 1 Recurrent UTI 06/12/2021 Assessment & Plan (05/03/2024 10:59 AM PICK PULLING MACHINE OPERATOR): COntinue f/u with [facility] and continue on vaginal estradiol and methenamine. Assessment & Plan (01/08/2024 5:25 PM CDT): She has a h/o multiple UTIs and referred to Urogynecology by infectious disease specialist Palmira Mg MD for consultation regarding rule out pelvic floor dysfunction in setting of recurrent UTI symptoms. -today's findings include incomplete bladder emptying as well as pelvic floor myofascial pain indicative of pelvic floor dysfunction as contributing factor in pelvic pressure/burning. We discussed that she likely achieves symptomatic improvement while on abx due to anti-inflammatory properties of antibiotic. -she is using the following UTI prevention strategies: VET (see below) and D- Mannose -she denies urinary symptoms that are different from baseline, urine sample not sent at today's visit Hyperkalemia 04/30/2021 Assessment & Plan (04/30/2021 7:39 PM PICK PULLING MACHINE OPERATOR): Prior to procedure. Suspect related to K Citrate (for kidney stones) and CKD4. -Hold K Citrate -Hold losartan tonight -Renal diet -Check BMP tonight, if still elevated, check EKG -Montor on tele. Assessment & Plan (04/30/2021 7:37 PM PICK PULLING MACHINE OPERATOR): Prior to procedure. Suspect related to K Citrate (for kidney stones) and CKD4. -Hold K Citrate -Hold losartan tonight -Renal diet -Check BMP tonight, if still elevated, check EKG -Montor on tele. Renal stones 04/30/2021 Assessment & Plan (04/30/2021 7:39 PM PICK PULLING MACHINE OPERATOR): Recently started on K citrate for renal stones. However now hyperkalemic -Hold k citrate for now. Assessment & Plan (04/30/2021 7:38 PM PICK PULLING MACHINE OPERATOR): Recently started on K citrate for renal stones. However now hyperkalemic -Hold k citrate for now. Renal lesion 04/30/2021 Assessment & Plan (04/30/2021 7:41 PM PICK PULLING MACHINE OPERATOR): Hypoattenuating left renal lesion suspected adenoma on CT. -Needs follow up with PCP for ongoing monitoring. PVC (premature ventricular contraction) 03/05/20 Overview (03/05/2021): Added automatically from request for surgery [id number] Assessment & Plan (05/01/2021 12:24 PM PICK PULLING MACHINE OPERATOR): 15-20% PVC burden on recent holter. [place] to be probable cause contributing to NICM. S/P PVC ablation 04/30/[address] Hess. -Start Eliquis 2.5mg BID (Age >80, Cr > 1.5) -No acute tele events overnight, still some PVCs. Groin sites ok - DC today Assessment & Plan (04/30/2021 7:32 PM PICK PULLING MACHINE OPERATOR): 15-20% PVC burden on recent holter. [place] to be probable cause contributing to NICM. S/P PVC ablation 04/30/[address] Hess. -Start Eliquis 2.5mg BID (Age >80, Cr > 1.5) -Monitor on telemetry and monitor access sites overnight -Will resume home cardiac meds (metoprolol) however hold losartan given hyperkalemia recently. Stage 3b chronic kidney disease 07/06/2020 ICD (implantable cardioverter-defibrillator) in place 04/19/2019 Assessment & Plan (05/03/2024 10:59 AM PICK PULLING MACHINE OPERATOR): Stable and will montior response. Pacemaker 11/19/2018 Class 2 severe obesity with serious comorbidity and body mass index (BMI) of 38.0 to 38.9 in adult 11/19/2018 Assessment & Plan (04/30/2021 7:39 PM PICK PULLING MACHINE OPERATOR): BMI 38.10 -Would benefit from outpatient weight loss -Continue PT S/P MVR (mitral valve replacement) 11/19/2018 Assessment & Plan (09/28/2024 10:38 AM CDT): WIll follow response. No s/s of fluid ovelroad. Assessment & Plan (05/03/2024 10:58 AM PICK PULLING MACHINE OPERATOR): NO s/s of fluid overload. Stage 4 chronic kidney disease 11/19/2018 Assessment & Plan (09/28/2024 10:37 AM CDT): Continue to support aggressive hydration. Normalizing / returning CR to baseline s/p hospitalization. Assessment & Plan (05/03/2024 10:58 AM PICK PULLING MACHINE OPERATOR): COtinue to follow with Dr. Taylor and reivewed hydration. WIll montior response. Assessment & Plan (04/30/2021 7:39 PM PICK PULLING MACHINE OPERATOR): Baseline Cr ~1.5. At baseline -Renal dose meds -Avoid nephrotoxins -Renal diet Assessment & Plan (04/30/2021 7:36 PM PICK PULLING MACHINE OPERATOR): Baseline Cr ~1.5. At baseline -Renal dose meds -Avoid nephrotoxins -Renal diet H/O mitral valve repair 11/19/2018 Primary osteoarthritis of left knee 10/26/2018 Overview (10/26/2018): Added automatically from request for surgery [id number] Assessment & Plan (01/15/2025 11:52 AM CDT): Reviwed orthopedic f/u and continues on tramadol. Reivewed oic and will follow response. Allergic rhinitis 05/25/2018 Assessment & Plan (04/30/2021 7:38 PM PICK PULLING MACHINE OPERATOR): Chronic -Continue claritan. Assessment & Plan (04/30/2021 7:34 PM PICK PULLING MACHINE OPERATOR): Chronic -Continue claritan. Chronic migraine without aur a without status migrainosus, not intractable 05/25/2018 Gastroesophageal reflux disease without esophagi tis 05/25/2018 Assessment & Plan (04/30/2021 7:38 PM PICK PULLING MACHINE OPERATOR): Stable. -Continue PPI Assessment & Plan (04/30/2021 7:34 PM PICK PULLING MACHINE OPERATOR): Stable. -Continue PPI NICM (nonischemic cardiomyopathy) ([facility]/HCC) 06/2017 Assessment & Plan (05/01/2021 12:23 PM PICK PULLING MACHINE OPERATOR): HFrEF/NICM (TTE 06/2014 LVEF 16% -> TTE 05/2020 LVEF 37%) s/p ICD for primary prevention. Now with 15-20% PVC burden possibly contributing. S/P PVC ablation 04/30/21. Currently evolve. - Restart home GDMT -Start eliquis 2.5mg BID (Age >80, INR > 1.5) -DC today Assessment & Plan (04/30/2021 7:34 PM PICK PULLING MACHINE OPERATOR): HFrEF/NICM (TTE 06/2014 LVEF 16% -> TTE 05/2020 LVEF 37%) s/p ICD for primary prevention. Now with 15-20% PVC burden possibly contributing. S/P PVC ablation 04/30/21. Currently evolve. -Hold losartan tonight given hyperkalemia -Continue metoprolol. -Continue ASA/statin -Start eliquis 2.5mg BID (Age >80, INR > 1.5) -Monitor overnight on tele Paraesophageal hernia 01/21/2018 Overview (01/21/2018): Added automatically from request for surgery [id number] Decreased GFR 07/21/2017 Presence of prosthetic heart valve 03/11/2017 Overview (10/06/2018): Overview: Defibrillator Physical deconditioning 12/04/2016 Obesity with body mass index 30 or greater 10/23 Nonsustained ventricular tachycardia 04/03/2015 Assessment & Plan (09/28/2024 10:39 AM CDT): No new palptiations. No orthopnea, no pnd.. CHF (congestive heart failure) 07/17/2014 Assessment & Plan (05/03/2024 10:58 AM PICK PULLING MACHINE OPERATOR): NO s/s of fluid overload and will monitor response. Continue on metoprolol XL and irbesartan and will montior response. ROSA ISELA (obstructive sleep apnea) 07/17/2014 Assessment & Plan (04/30/2021 7:39 PM PICK PULLING MACHINE OPERATOR): Not on CPAP -ROSA ISELA precautions -Tele Assessment & Plan (04/30/2021 7:35 PM PICK PULLING MACHINE OPERATOR): Not on CPAP -ROSA ISELA precautions -Tele Chronic systolic heart failure (CMS/HCC) 015 Assessment & Plan (05/01/2021 12:23 PM PICK PULLING MACHINE OPERATOR): HFrEF/NICM (TTE 06/2014 LVEF 16% -> TTE 05/2020 LVEF 37%) s/p ICD for primary prevention. Now with 15-20% PVC burden possibly contributing. S/P PVC ablation 04/30/21. Currently evolve. -As above, continue GDMT Assessment & Plan (04/30/2021 7:34 PM PICK PULLING MACHINE OPERATOR): HFrEF/NICM (TTE 06/2014 LVEF 16% -> TTE 05/2020 LVEF 37%) s/p ICD for primary prevention. Now with 15-20% PVC burden possibly contributing. S/P PVC ablation 04/30/21. Currently evolve. -Hold losartan tonight given hyperkalemia -Continue metoprolol. -Continue ASA/statin -Start eliquis 2.5mg BID (Age >80, INR > 1.5) -Monitor overnight on tele Hyperlipidemia 05/13/2012 Assessment & Plan (04/30/2021 7:38 PM PICK PULLING MACHINE OPERATOR): Continue statin Assessment & Plan (04/30/2021 7:34 PM PICK PULLING MACHINE OPERATOR): Continue statin Hypertension 05/13/2012 Hypothyroid 05/13/2012 Assessment & Plan (05/03/2024 10:58 AM PICK PULLING MACHINE OPERATOR): Continues on clinical euthyroid, clinically euthyroid. WIll follow response. Assessment & Plan (04/30/2021 7:39 PM PICK PULLING MACHINE OPERATOR): Continue syntrhoid. Assessment & Plan (04/30/2021 7:36 PM PICK PULLING MACHINE OPERATOR): Continue syntrhoid. Osteoarthrosis 05/13/2012 Assessment & Plan (04/30/2021 7:39 PM PICK PULLING MACHINE OPERATOR): Undergoing PT as an outpatient and uses APAP and Tramadol PRN. -Continue APAP and Tramadol. Assessment & Plan (04/30/2021 7:35 PM PICK PULLING MACHINE OPERATOR): Undergoing PT as an outpatient and uses APAP and Tramadol PRN. -Continue APAP and Tramadol. Mitral valve disorder 04/27/2012 Overview (10/06/2018): Overview: Mitral Valve Disorder Assessment & Plan (04/30/2021 7:39 PM PICK PULLING MACHINE OPERATOR): S/P MVR/Annuloplasty. Assessment & Plan (04/30/2021 7:35 PM PICK PULLING MACHINE OPERATOR): S/P MVR/Annuloplasty. LV dysfunction 04/15/2012 Atherosclerosis of arteries of extremities 01/21 Resolved Problems Problem Noted Date Diagnosed Date Resolved Date Dyspnea on exertion 09/15/2016 03/20/20 21 Encounters Date Type Department Care Team Description 01/15/2025 Results Follow-Up [facility] [address] [phone] Hipolito Chowdhury MD Lipid panel, Comprehensive metabolic panel, CBC with auto differential, Additional followed-up results: 2 01/13/2025 Orders Only [facility] [address] [phone] Hipolito Chowdhury MD 01/12/2025 Telephone [facility] [address] [address] Hipolito Chowdhury MD 01/12/2025 Telephone [facility] [address] [phone] Hipolito Chowdhury MD Additional Services Or Orders 01/11/2025 10:45 AM CDT Lab [facility] [address] [place] [address] Hypertension, essential 01/05/2025 Telephone [facility] [address] [address] Hipolito Chowdhury MD Prior Auth (Dicyclomine) 01/04/2025 11:15 AM CDT Office Visit [facility] [address] [phone] Hipolito Chowdhury MD Degeneration of intervertebral disc of lumbar region with discogenic back pain (Primary Dx); Hypertension, essential; Sensorineural hearing loss (SNHL) of both ears; Asymptomatic menopausal state; Primary osteoarthritis of left knee; Irritable bowel syndrome, unspecified type; BMI 38.0-38.9,adult; Severe obesity (BMI 35.0-39.9) with comorbidity (HCC); Stage 4 chronic kidney disease (HCC) 12/29/2024 9:39 AM CDT - 12/29/2024 11:59 PM CDT Hospital Encounter [facility] [address] [place] [address] Right middle lobe pulmonary nodule Discharge Disposition: Discharge to home or self care 12/22/2024 3:04 PM CDT - 12/22/2024 11:59 PM CDT Hospital Encounter [facility] Medical Office Building [address] [place] [address] Kidney stone Discharge Disposition: Discharge to home or self care 12/22/2024 11:40 AM CDT Office Visit [facility] Surgery [address] [place] [address] Nilesh Beaulieu MD Kidney stone 12/15/2024 Orders Only [facility] Cardiology [address] [place] [address] 8th [place] [address] [place] [address] Woody Hess MD 11/28/2024 10:15 AM CDT Office Visit [facility] Cardiology [address] [place] [address] 8th [place] [address] [place] [address] Yas Christopher NP PVC (premature ventricular contraction) (Primary Dx); Pacemaker; Nonsustained ventricular tachycardia (HCC); NICM (nonischemic cardiomyopathy) (CMS/HCC) (HCC) 11/28/2024 9:45 AM CDT Ancillary Procedure [facility] [address] [place] [address] 8th [place] [address] [place] [address] NICM (nonischemic cardiomyopathy) (HCC) (Primary Dx); Fitting and adjustment of automatic implantable cardioverter-defibrill ator 11/15/2024 Results Follow-Up [facility] Medical Group [facility] Care at [place] [address] Shagufta Leo, MANAGER MEDICAL Urine culture Urine, clean voided 11/14/2024 11:00 AM CDT Office Visit [facility] Medical Group [facility] Care at [address] [place] [address] Cely Minor, MAGDIEL Acute cystitis with hematuria (Primary Dx) 11/14/2024 10:42 AM CDT - 11/14/2024 11:59 PM CDT Hospital Encounter [address] [address] Acute cystitis with hematuria Discharge Disposition: Discharge to home or self care 10/27/2024 Results Follow-Up [facility] Care at [address] [place] [address] Shagufta Leo, MANAGER MEDICAL Urine culture Urine, clean voided 10/27/[address] [facility] Accountable Care Organization [address] [place] [address] Nick Owen RN 10/26/2024 11:44 AM CDT - 10/26/2024 11:59 PM CDT Hospital Encounter [address] [address] Complicated UTI (urinary tract infection) Discharge Disposition: Discharge to home or self care 10/26/2024 10:45 AM CDT Office Visit [facility] Care at [address] [place] [address] Sherry Watkins, MAGDIEL Bilateral impacted cerumen (Primary Dx); Complicated UTI (urinary tract infection) from Last 3 Months Immunizations Immunization Administration Dates Next Due Influenza Virus Vaccine Trivalent Mdv 03/05/2024 ,02/15/2019 Influenza, Quad, Adjuvantate d, Intramuscular 02/21/2021 Influenza, Quadrivalent, Hig h Dose, Preservative Free, Intrr 02/16/2023,02/12/2022,01/26/2020 Influenza, Quadrivalent, Spl it, Intramuscular 02/21/2021 Influenza, Trivalent, Adjuva nted, Intramuscular 02/15/2019,03/09/2018 Influenza, Trivalent, High D ose, Split, Preservative Free, Intramuscular 01/26/2020,01/21/2017,02/18/2015 Influenza, Trivalent, IM (MDV) 02/20/2014,2012 Influenza, Unspecified 02/02/2024(Deferr ed: Patient Refused),06/08/2023(Deferred: Patient Refused),02/06/2023,02/06/2021, 019,03/09/2018,02/19/2015,02/20/2014,0 02/11/2013,03/03/2012 Pfizer SARS-CoV-2 Monovalent Vaccination (12+ Yrs) PURPLE 07/13/2020 Pneumococcal Conjugate PCV 13 04/13/2014 Pneumococcal Polysaccharide PPV23 11/18/2017 Surgical History Surgery Date Site/Laterality Comments MITRAL VALVE REPAIR 01/07/2012 - 02/06/2012 TOTAL KNEE ARTHROPLASTY 10/06/2013 - 11/05/2013 Right SKIN CANCER EXCISION 11/06/2016 - 12/05/2016 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 CARDIAC DEFIBRILLATOR PLACEMENT 12/06/2014 - 01/05/2015 [facility] for EF of 16% HIATAL HERNIA REPAIR 02/03/2018 COLONOSCOPY Multiple-- Last early UPPER GASTROINTESTINAL ENDOSCOPY Multiple-- Last 2017 TONSILLECTOMY AND ADENOIDECTOMY 06/08/1942 - 06/07/1943 CARDIAC ELECTROPHYSIOLOGY STUDY AND ABLATION 04/30/2021 URETEROSCOPY 09/13/2021 RIGHT AND LEFT URETEROSCOPY WITH BILATERAL THULIUM LASER AND STONE EXTRACTION ; BILATERAL PLACEMENT STENT - URETERAL TOTAL KNEE ARTHROPLASTY 11/24/2018 Left Medical History Medical History Date Comments GERD (gastroesophageal reflux disease) Hiatal hernia CHF (congestive heart failure) ([facility]) EF 54% by MARICRUZ 12/2017; EF 16% 06/2014 Hypertension Pt denies Hyperlipidemia Treated with sta tin Hypothyroidism Arthritis NICM (nonischemic cardiomyopathy) ([facility]) 04/08/20 18 s/p ICD placement 12/2014 Migraines History of DVT (deep vein thrombosis) Soleal History of rheumatoid arthritis Obesity Sleep apnea no CPAP Family History Medical History Relation Name Comments Alcohol abuse Brother Coronary artery disease Brother Fami ly history of coronary artery disease - (Added by TW Conv) Gout Brother Heart disease Brother Alcohol abuse Father Coronary artery disease Father Fami ly history of coronary artery disease - (Added by TW Conv) Heart disease Father Cancer Mother Anesthesia problems Neg Hx Relation Name Status Comments Brother Father Mother Social History Tobacco Use Types Packs/Day Years Used Date Smoking Tobacco: Never Passive Smoke Exposure: Past Smokeless Tobacco: Never Tobacco Cessation:Counseling Given: Not Answered Alcohol Use Standard Drinks/Week Comments No 0 (1 standard drink = 0.6 oz pur e alcohol) [facility] Utilities Answer Date Recorded In the past 12 months has e [employer], gas, oil, or water [employer] threatened to shut off services in your [...] week 10/12/2024 How often do you attend [facility] ch or hindu services? Never 10/12/2024 Do you belong to any clubs o r organizations such as taoism groups, unions, fraternal or athletic groups, or [...] any time in the past 12 m [facility], were you homeless or living in a custodial (including now)? No 10/12/2024 Personal Safety Answer Date Recorded Have you ever been in or are you currently in a harmful physical or emotional relationship or is someone making you feel afraid or unsafe? Denies 09/11/2024 Comments No Sex and Gender Information Value Date Recorded Sex Assigned at Not on file Legal Sex Female 2:05 AM PICK PULLING MACHINE OPERATOR Gender Identity Female 06/09/2023 3:00 PM PICK PULLING MACHINE OPERATOR Sexual Orientation Not on file Occupation Industry Job Start Date Job End Date retired Not on file Not on file Not on file Obstetrics History Last Filed Vital Signs Vital Sign Reading Time Taken Comments Blood Pressure 118/66 01/04/2025 10:39 AM CDT Pulse 78 01/04/2025 10:39 AM CDT Temperature 36.4 C (97.6 F) 01/04/2025 10:39 AM CDT Respiratory Rate 18 01/04/2025 10:39 AM CDT Oxygen Saturation 95% 01/04/2025 10:39 AM CDT room air Inhaled Oxygen Concentration - - Weight 94.8 kg (209 lb) 01/04/2025 10:39 AM CDT Height 157.5 cm (5' 2) 01/04/2025 10:39 AM CDT Body Mass Index 38.23 01/04/2025 10:39 AM CDT Plan of Treatment Health Maintenance Due Date Last Done Comments DTaP/Tdap/Td Vaccine (1 - Tdap) 1949 Hepatitis B Screening 1956 Zoster Vaccine (1 of 2) 1988 Osteoporosis Screening-Bone Density Scan 01/17/2024 01/16/2022, 01/16/2022, 07/27/2019 Covid-19 Vaccine (3 - 2023-2 5 season) 2024 08/10/2020, 07/13/2020 Influenza Vaccine (#1) 2025 , 02/16/2023, 02/06/2023, Additional history exists Depression Screening 05/03/2025 05/03/2024, 02/02/2024, 09/29/2023, Additional history exists Well Visit 65+ 05/03/2025 05/03/2024, 06/26/2022 Fall Risk Assessment 09/15/2025 09/15/2024, 05/03/2024, 02/02/2024, Additional history exists Pneumococcal vaccine 65+ Completed 11/18/2017, 11/2013 Medical Devices Implanted Type Area Supervisor Residential Device Identifier Shelf Expiration Date Model / Serial / Lot Icd-12/14/2014 Implanted:12/14 (Quantity not on file) ICD Left: Chest Wall St [employer] / [id number] / Icd-12/14/2014 Implanted:12/14 (Quantity not on file) ICD Chest [employer] [id number] [place] Bio-A 10x7cm Reinforcement Tissue Mesh Surgical Synthetic - [id number] - [id number] Implanted:Qty: 1 on 02/03/2018 by Paul Ware MD at [facility] Mesh [employer] [id number] 10/05/2020 [id number] / [id number] / 0 Description:diaphram [employer] [id number] System 6-12fr Mvp Venous Closure Vascade - [id number] Implanted:Qty: 1 on 04/30/2021 by Woody Hess MD at [facility] Other - see comments Right: Groin [employer] 10/03/2022 [id number] / / [id number] Dai[employer]ick[employer] [id number] Angio-Seal Evolution 8fr .038in Guidewire Bypass Tube Suture - [id number] Implanted:Qty: 1 on 04/30/2021 by Woody Hess MD at [facility] Other - see comments Right: Groin [employer] Karime 03/07/2022 [id number] / / [id number] Tr [employer] 6197-9-001 Simplex P Full Dose Radiopaque Preblend Cement Bone Tobramycin - [id number] Implanted:Qty: 1 on 11/24/2018 by Angus Hernandez MD at [facility] Left: Knee [employer] 03/07/2020 6197-9-001 / / [id number] [employer] 6197-9-001 Simplex P Full Dose Radiopaque Preblend Cement Bone Tobramycin - [id number] Implanted:Qty: 1 on 11/24/2018 by Angus Hernandez MD at [facility] Left: Knee [employer] 01/06/2020 6197-9-001 / / [id number] [employer] [id number] Persona 35mm Knee Component Patellar All Poly Latex Free - [id number] Implanted:Qty: 1 on 11/24/2018 by Angus Hernandez MD at [facility] Left: Knee [employer] [id number] 05/07/2026 [id number] / / [id number] [employer] [id number] Persona 12mm Knee Left 8-9 C-D Insert Articular Vivacit-E Sterile - [id number] Implanted:Qty: 1 on 11/24/2018 by Angus Hernandez MD at [facility] Left: Knee [employer] [id number] 11/05/2020 [id number] / / [id number] [employer] [id number] Persona Cruciate Retain Cemented Knee Left 8 Standard Component - [id number] Implanted:Qty: 1 on 11/24/2018 by Angus Hernandez MD at [facility] Left: Knee [employer] [id number] 09/05/2028 [id number] / / [id number] [employer] [id number] Persona Cemented Stem Knee Left 5d D Baseplate Tibial Tivanium - [id number] Implanted:Qty: 1 on 11/24/2018 by Angus Hernandez MD at [facility] Left: Knee [employer] [id number] 12/06/2027 [id number] / / [id number] [employer] [id number] Set Stent 24cm 5fr Universa 2 Pigtail Curve Ureter Aq Radopq - [id number] Implanted:Qty: 1 on 09/13/2021 by Constance aLra MD at [facility] Explanted:09/26 by Constance Lara MD (Quantity not on file) Left: Ureter [employer] [id number] 06/08/2024 [id number] / / [id number] [employer] [id number] Set Stent 26cm 5fr Universa 2 Pigtail Curve Ureter Hdrph - [id number] Implanted:Qty: 1 on 09/13/2021 by Constance Lara MD at [facility] Explanted:09/26 by Constance Lara MD (Quantity not on file) Right: Ureter [employer] [id number] 04/09/2024 [id number] / / [id number] Procedures Procedure Name Priority Date/Time Associated Diagnosis Comments EGFR Routine 01/11/2025 10:42 AM CDT Hypertension, essential DIFFERENTIAL AUTO Routine 01/11/2025 10:42 AM CDT Hypertension, essential CBC WITH AUTO DIFFERENTIAL Routine 01/11/2025 10:42 AM CDT Hypertension, essential COMPREHENSIVE METABOLIC PANEL Routine 01/11/2025 10:42 AM CDT Hypertension, essential LIPID PANEL Routine 01/11/2025 10:42 AM CDT Hypertension, essential CT CHEST WO CONTRAST Schedule Routine, Read Routine (OP Routine) 12/29/2024 10:13 AM CDT Right middle lobe pulmonary nodule URINALYSIS, MICROSCOPIC ONLY Routine 12/22/2024 12:00 PM CDT Kidney stone URINE CULTURE Routine 12/22/2024 12:00 PM CDT URINALYSIS AND REFLEX TO MICROSCOPIC AND CULTURE Routine 12/22/2024 12:00 PM CDT Kidney stone POCT URINALYSIS DIPSTICK Routine 12/22/2024 11:58 AM CDT Kidney stone DEVICE CHECK - REMOTE Routine 12/15/2024 4:00 AM CDT DEVICE CHECK - IN OFFICE Routine 11/28/2024 9:37 AM CDT NICM (nonischemic cardiomyopathy) (HCC) Fitting and adjustment of automatic implantable cardioverter-defi brillator URINE CULTURE Routine 11/14/2024 10:42 AM CDT Acute cystitis with hematuria POCT URINALYSIS DIPSTICK Routine 11/14/2024 10:39 AM CDT Acute cystitis with hematuria POCT URINALYSIS DIPSTICK Routine 10/26/2024 11:44 AM CDT Complicated UTI (urinary tract infection) URINE CULTURE Routine 10/26/2024 11:44 AM CDT Complicated UTI (urinary tract infection) NE REMOVAL IMPACTED CERUMEN IRRIGATION/LVG UNILAT Routine 10/26/2024 10:45 AM CDT Bilateral impacted cerumen NE REMOVAL IMPACTED CERUMEN INSTRUMENTATION UNILAT Routine 10/26/2024 10:45 AM CDT Bilateral impacted cerumen HM DEXA SCAN Routine 01/16/2022 from Last 3 Months or Most Recently Relevant to Health Maintenance Results * (ABNORMAL) eGFR (01/11/2025 10:42 AM CDT) eGFR 29(L) >=60 mL/min/1. 73 m2 Comment: Interpretive Data Reference Interval Normal >/= 90 mL/min/1.73m2 Mildly decreased* 60 - 89 mL/min/1.73m2 Mildly to moderately decreased 45 - 59 mL/min/1.73m2 Moderately to severely decreased 30 - 44 mL/min/1.73m2 Severely decreased 15 - 29 mL/min/1.73m2 Kidney Failure < 15 mL/min/1.73m2 *Relative to young adult level Estimated glomerular filtration rate is determined by the 2020 CKD-EPI equation recommended by the National Kidney Foundation (A Unifying Approach to GFR Estimation: Recommendations of the NKF-ASK Task Force on Reassessing the Inclusion of Race in Diagnosing Kidney Disease, JASN 2020). The CKD-EPI equation should not be used for patients with unstable renal function and has not been validated in children and those over 70. Current interpretive data was last reviewed 2021. Testing performed by: [address] [address] Blood 01/11/2025 10:4 2 AM CDT 01/11/2025 5:38 PM CDT us Hipolito Chowdhury MD LAB BLOOD ORDERABLES Diamond l Result [facility] ([place]) 1 [facility] Department [place] [address] * (ABNORMAL) Differential, auto (01/11/2025 10:42 AM CDT) Neutrophil abs 4.32 1.50 - 6.50 K/cumm Comment:Testing performed by : [facility], [address] [place] [address]., [address] Imm gran abs 0.02 0.00 - 0.10 K/cumm [facility]OR[facility]E BAUTIST[facility] ([place]) Comment:Testing performed by : [address], [address] Lymphocyte abs 1.19 0.80 - 3.30 K/cumm [facility] ([place]) Comment:Testing performed by : [facility], [address] [place] [address]., [address] Monocyte abs 0.66 0.20 - 0.80 K/cumm [facility] ([place]) Comment:Testing performed by : [facility], [address] [place] [address]., [address] Eosinophil abs 0.53(H) 0.00 - 0.50 K/cumm [facility] ([place]) Comment:Testing performed by : [facility], [address] [place] [address]., [address] Basophil abs 0.06 0.00 - 0.10 K/cumm [facility] ([place]) Comment:Testing performed by : [address] [address] Neutrophil pct 63.7 % [facility] ([place]) Comment: Interpretive Data Percent cell count reference ranges are not reported, since discordance with absolute values may lead to misinterpretation of CBC data. Current Interpretive Data was last revised on 2017. Testing performed by: [facility], [address] [place] [address]., [address] Imm gran pct 0.3 % [facility] ([place]) Comment: Interpretive Data Percent cell count reference ranges are not reported, since discordance with absolute values may lead to misinterpretation of CBC data. Current Interpretive Data was last revised on 2017. Testing performed by: [address] [address] Lymphocyte pct 17.6 % [facility] ([place]) Comment: Interpretive Data Percent cell count reference ranges are not reported, since discordance with absolute values may lead to misinterpretation of CBC data. Current Interpretive Data was last revised on 2017. Testing performed by: [address] [address] Monocyte pct 9.7 % [facility] ([place]) Comment: Interpretive Data Percent cell count reference ranges are not reported, since discordance with absolute values may lead to misinterpretation of CBC data. Current Interpretive Data was last revised on 2017. Testing performed by: [address] [address] Eosinophil pct 7.8 % [facility] ([place]) Comment: Interpretive Data Percent cell count reference ranges are not reported, since discordance with absolute values may lead to misinterpretation of CBC data. Current Interpretive Data was last revised on 2017. Testing performed by: [address] [address] Basophil pct 0.9 % [facility] ([place]) Comment: Interpretive Data Percent cell count reference ranges are not reported, since discordance with absolute values may lead to misinterpretation of CBC data. Current Interpretive Data was last revised on 2017. Testing performed by: [address], [address] Blood 01/11/2025 10:4 2 AM CDT 01/11/2025 5:23 PM CDT Hipolito Chowdhury MD LAB BLOOD ORDERABLES Diamond goldman Result [facility] ([place]) 1 [facility] Department [place] [address] * (ABNORMAL) CBC with auto differential (01/11/2025 10:42 AM CDT) WBC 6.78 3.80 - 9.90 K/cumm Comment:Testing performed by : [address], [address] Hgb 12.9 11.9 - 15.5 g/dL [facility] ([place]) Comment:Testing performed by : [address], [address] Hct 41.3 35.6 - 45.5 % [facility] ([place]) Comment:Testing performed by : [address] [address] Plt 315 150 - 400 K/cumm [facility]E BAUTISTA ([place]) Comment:Testing performed by : [address], [address] MPV 10.7 9.1 - 12.3 fL [facility] ([place]) Comment:Testing performed by : [address], [address] RBC 4.42 3.90 - 5.20 M/cumm [facility] ([place]) Comment:Testing performed by : [facility], [address] [place] [address], [address] MCV 93.4 81.3 - 96.4 fL [facility] ([place]) Comment:Testing performed by : [facility], [address] [place] [address], [address] MCH 29.2 27.1 - 33.3 pg [facility] ([place]) Comment:Testing performed by : [facility], [address] [place] [address], [address] MCHC 31.2(L) 32.3 - 35.7 g/dL [facility] ([place]) Comment:Testing performed by : [facility], [address] [place] [address], [address] RDW CV 15.7(H) 11.1 - 14.9 % [facility] ([place]) Comment:Testing performed by : [address], [address] RDW SD 53.8(H) 35.7 - 48.1 fL [facility] ([place]) Comment:Testing performed by : [facility], [address] [place] [address], [address] NRBC abs 0.00 0.00 - 0.01 K/cumm [facility] ([place]) Comment:Testing performed by : [address], [address] Blood 01/11/2025 10:4 2 AM CDT 01/11/2025 5:23 PM CDT us Hipolito Chowdhury MD LAB BLOOD ORDERABLES Diamond goldman Result [facility]RIE BAUTISTA ([place]) 1 [facility] Department of Laboratories [place], [place] [id number] * Lipid panel (01/11/2025 10:42 AM CDT) Cholesterol 160 30 - 199 mg/dL Comment: Interpretive Data Ages < or = 19 years Acceptable: <170 mg/dL Borderline high: 170-199 mg/dL High: >or= 200 mg/dL Ages > or = 20 years Desirable: <200 mg/dL Borderline high: 200-239 mg/dL High: >or= 240 mg/dL Literature References: 1. Expert Panel on Integrated Guidelines for Cardiovascular Health and Risk Reduction in Children and Adolescents. Pediatrics 2011;128:S213 2. NCEP Expert Panel. Circulation 2004;110:227 Current Interpretive Data was last revised on 2018. Testing performed by: [facility], [address] [place] [address]., [address] Triglycerides 96 <=149 mg/dL [facility] ([place]) Comment: Interpretive Data Ages < or = 9 years Acceptable: <75 mg/dL Borderline high: 75-99 mg/dL High: >or= 100 mg/dL Ages 10 to 20 years Acceptable: <90 mg/dL Borderline high: 90-129 mg/dL High: >or= 130 mg/dL Ages > or = 20 years Desirable: <150 mg/dL Borderline high: 150-199 mg/dL High: 200-499 mg/dL Very high: >or= 499 mg/dL Literature References: 1. Expert Panel on Integrated Guidelines for Cardiovascular Health and Risk Reduction in Children and Adolescents. Pediatrics 2011;128:S213 2. NCEP Expert Panel. Circulation 2004;110:227 Current Interpretive Data was last revised on 2018. Testing performed by: [address] [address] HDL 52 >=40 mg/dL [facility] ([place]) Comment: Interpretive Data Ages < or = 19 years Acceptable: >45 mg/dL Borderline low: 40-45 mg/dL Low: <40 mg/dL Ages > or = 20 years Desirable: >or= 60 mg/dL Low: <40 mg/dL Literature References: 1. Expert Panel on Integrated Guidelines for Cardiovascular Health and Risk Reduction in Children and Adolescents. Pediatrics 2011;128:S213 2. NCEP Expert Panel. Circulation 2004;110:227 Current Interpretive Data was last revised on 2018. Testing performed by: [address] [address] LDL, calculated 90 <=129 mg/dL [facility] ([place]) Comment: Interpretive Data Ages < or = 19 years Acceptable: <110 mg/dL Borderline high: 110-129 mg/dL High: >or= 130 mg/dL Ages > or = 20 years Optimal: <100 mg/dL Near optimal: 100-129 mg/dL Borderline high: 130-159 mg/dL High: >160 mg/dL Calculated using the Av LDL-C estimating equation. This equation was implemented on 2024. Prior to this date LDL-C was estimated using the Friedewald equation. Literature References: 1. Expert Panel on Integrated Guidelines for Cardiovascular Health and Risk Reduction in Children and Adolescents. Pediatrics 2011;128:S213 2. NCEP Expert Panel. Circulation 2004;110:227 3. Av Cline et al. TY Cardiol. 2019October 06;5(5):540-548. doi: 10.1001/jamacardio.2020.0013 Current Interpretive Data was last revised on 2024. Testing performed by: [address] [address] Non-HDL Cholesterol 108 mg/dL [facility] BAUTISTA ([place]) Comment: Interpretive Data Ages < or = 19 years Acceptable: <120 mg/dL Borderline high: 120-144 mg/dL High: >145 mg/dL Ages > or = 20 years When triglycerides are >200 mg/dL, Non-HDL cholesterol is a secondary target of therapy with treatment goals that are 30 mg/dL greater than the LDL cholesterol target. Literature References: 1. Expert Panel on Integrated Guidelines for Cardiovascular Health and Risk Reduction in Children and Adolescents. Pediatrics 2011;128:S213 2. NCEP Expert Panel. Circulation 2004;110:227 Current Interpretive Data was last revised on 2018. Testing performed by: [facility], [address] [place] [address]., [address] Chol/HDL ratio 3 [facility]JINDER BAUTISTA ([place]) Comment:Testing performed by : [address] [address] Blood 01/11/2025 10:4 2 AM CDT 01/11/2025 5:23 PM CDT us Hipolito Chowdhury MD LAB BLOOD ORDERABLES Diamond goldman Result [facility] ([place]) 1 [facility] [place] [address] * (ABNORMAL) Comprehensive metabolic panel (01/11/2025 10:42 AM CDT) Sodium 140 135 - 145 mmol/L Comment:Testing performed by : [facility], [address] [place] [address]., [address] Potassium, pl 4.1 3.3 - 4.9 mmol/L [facility] ([place]) Comment:Testing performed by : [facility], [address] [place] [address]., [address] Chloride 102 97 - 110 mmol/L [facility] ([place]) Comment:Testing performed by : [facility], [address] [place] [address]., [address] CO2 25 22 - 32 mmol/L [facility] ([place] Comment:Testing performed by : [address] [address] Anion gap 13 2 - 15 mmol/L [facility] ([place]) Comment:Testing performed by : [facility], [address] [place] [address]., [address] BUN 39(H) 6 - 25 mg/dL [facility] ([place]) Comment:Testing performed by : [address] [address] Creatinine 1.69(H) 0.60 - 1.10 mg/dL [facility] ([place]) Comment:Testing performed by : [address] [address] Glucose 91 70 - 199 mg/dL [facility] ([place]) Comment: Interpretive Data Fasting glucose >/= 126 mg/dl is diagnostic for diabetes. Fasting is defined as no caloric intake for at least 8 hours. Fasting glucose between 100 mg/dl to 125 mg/dl is diagnostic of prediabetes. In a patient with classic symptoms of hyperglycemia or hyperglycemic crisis, a random glucose >/= 200 mg/dl is diagnostic for diabetes. In the absence of unequivocal hyperglycemia, results should be confirmed by repeat testing. The classification and Diagnosis of Diabetes Diabetes Care 2021; 46: S19-S40. Current interpretive data was last revised 2022. Testing performed by: [address] [address] Calcium 9.4 8.5 - 10.3 mg/dL [facility] ([place]) Comment:Testing performed by : [facility], [address] [place] [address], [address] Bilirubin, total 0.5 0.1 - 1.2 mg/dL [facility] ([place]) Comment:Testing performed by : [facility], [address] [place] [address], [address] Protein, pl 7.4 6.5 - 8.5 g/dL [facility] ([place]) Comment:Testing performed by : [facility], [address] [place] [address], [address] Albumin 3.4(L) 3.5 - 5.0 g/dL [facility] ([place]) Comment:Testing performed by : [facility], [address] [place] [address], [address] Alk phos 104 40 - 130 Units/L [facility] ([place]) Comment:Testing performed by : [address], [address] ALT 17 7 - 45 Units/L [facility] ([place]) Comment:Testing performed by : [address], [address] AST 30 10 - 45 Units/L [facility] ([place]) Comment:Testing performed by : [address], [address] Blood 01/11/2025 10:4 2 AM CDT 01/11/2025 5:23 PM CDT Hipolito Chowdhury MD LAB BLOOD ORDERABLES Diamond goldman Result [facility] ([place]) 1 [facility] Department of Laboratories [place], [place] [id number] * CT Chest WO Contrast (12/29/2024 10:13 AM CDT) Anatomical Region Laterality Modality Body N/A Computed Tomogra phy 01/16/2025 11:4 7 AM CDT Narrative 01/16/2025 12:11 PM CDT EXAM DESCRIPTION: CT CHEST WO CONTRAST REASON FOR STUDY: Lung nodule, > 8mm Right middle lobe Lung nodule found during recent hospitalization. TECHNIQUE: CT scan of the chest performed without intravenous contrast using helical scanning technique. Reconstructed coronal and sagittal MPR images reviewed. All images stored on PACS. Automated exposure control was used as a dose optimization technique for this examination. COMPARISON: CT chest 09/11/2024 FINDINGS: The sensitivity for detection of solid visceral lesions is diminished without the use of intravenous contrast. LUNGS: There is extensive scarring and subsegmental atelectasis in the lung bases, predominantly in the right middle lobe. A 10 x 9 mm nodule in the right middle lobe (series 3, image 60) previously measured 11 x 10 mm. Unchanged 6 mm solid nodule in the right middle lobe on image 52. Unchanged 5 mm solid nodule in the right lower lobe on image 73. New 8 mm part solid nodule in the left lower lobe on image 40. PLEURA: No effusion. No pneumothorax. MEDIASTINUM/NANY: There is a small hiatal hernia. There are no enlarged mediastinal lymph nodes. HEART: Heart size is normal with no pericardial effusion. CORONARY ARTERY CALCIFICATION: Positive VASCULATURE: No thoracic aortic aneurysm. AXILLA: No adenopathy. CHEST WALL: No masses. No subcutaneous air. HARDWARE/LINES/TUBES: Left subclavian ICD. UPPER ABDOMEN: Unchanged 2.5 cm left adrenal gland nodule with low Hounsfield unit density likely representing an adenoma. There is also an area of coarse calcification. There are postsurgical changes of the gastroesophageal junction. MUSCULOSKELETAL: There are partial resection changes of the right 4th rib. There are degenerative changes throughout the thoracic spine. OTHER: No other significant abnormality. IMPRESSION: New 8 mm part solid nodule in the left lower lobe. Recommend follow-up chest CT in 3 months. Other pulmonary nodules are unchanged. Extensive scarring and subsegmental atelectasis in the lung bases, predominantly in the right middle lobe. THIS IS AN ELECTRONICALLY VERIFIED FINAL REPORT 01/16/2025 12:11 PM - Electronically signed by Crow Martel M.D. AM: AM Report ID: [id number] Reading Location: [place] [address] Procedure Note Crow Matrel MD - 01/16/2025 EXAM DESCRIPTION: CT CHEST WO CONTRAST REASON FOR STUDY: Lung nodule, > 8mm Right middle lobe Lung nodule found during recent hospitalization. TECHNIQUE: CT scan of the chest performed without intravenous contrastusing helical scanning technique. Reconstructed coronal and sagittal MPR images reviewed. All images stored on PACS. Automated exposure control was usedas a dose optimization technique for this examination. COMPARISON: CT chest 09/11/2024 FINDINGS: The sensitivity for detection of solid visceral lesions is diminished without the use of intravenous contrast. LUNGS: There is extensive scarring and subsegmental atelectasis in thelung bases, predominantly in the right middle lobe. A 10 x 9 mm nodule in the right middle lobe (series 3, image 60) previously measured 11 x 10 mm. Unchanged 6 mm solid nodule in the right middle lobe on image 52.Unchanged 5 mm solid nodule in the right lower lobe on image 73. New 8 mm part solid nodule in the left lower lobe on image 40. PLEURA: No effusion. No pneumothorax. MEDIASTINUM/NANY: There is a small hiatal hernia. There are no enlarged mediastinal lymph nodes. HEART: Heart size is normal with no pericardial effusion. CORONARY ARTERY CALCIFICATION: Positive VASCULATURE: No thoracic aortic aneurysm. AXILLA: No adenopathy. CHEST WALL: No masses. No subcutaneous air. HARDWARE/LINES/TUBES: Left subclavian ICD. UPPER ABDOMEN: Unchanged 2.5 cm left adrenal gland nodule with low Hounsfield unit density likely representing an adenoma. There is also anarea of coarse calcification. There are postsurgical changes of the gastroesophageal junction. MUSCULOSKELETAL: There are partial resection changes of the right 4thrib. There are degenerative changes throughout the thoracic spine. OTHER: No other significant abnormality. IMPRESSION: New 8 mm part solid nodule in the left lower lobe. Recommend follow-up chest CT in 3 months. Other pulmonary nodules are unchanged. Extensive scarring and subsegmental atelectasis in the lung bases, predominantly in the right middle lobe. THIS IS AN ELECTRONICALLY VERIFIED FINAL REPORT 01/16/2025 12:11 PM - Electronically signed by Crow Martel M.D. AM: AM Report ID: [id number] Reading Location: [place] [address] Hipolito Chowdhury MD IMG CT PROCEDURES Final R esult * (ABNORMAL) Urinalysis reflex to microscopic and culture Urine, bladder (12/22/2024 12:00 PM CDT) Color, ur Yellow Yellow Comment:Testing performed by : [address], [place]., [address] Clarity, ur Turbid(A) Clear [place] Comment:Testing performed by : [address], [place]., [address] Specific gravity, ur 1.013 1.003 - 1.030 [place] Comment:Testing performed by : [address] [address] pH, urine 5.5 [place] Comment: Interpretive Data U rine pH is affected by diet, medications, systemic acid-base disturbances, and renal tubular function. pH may affect urinary stone formation. For example, urine pH below 6.0 may help reduce the tendency for calcium phosphate stones and pH greater than 6.0 may reduce the tendency for uric acid stone formation. Source: [facility] watAgame Current Interpretive Data was last revised on 2017 Testing performed by: [address] [address] Protein, ur ql Trace(A) Negative [place] Comment:Testing performed by : [address] [address] Glucose, ur ql Negative Negative [place] Comment:Testing performed by : [address] [address] Ketones, ur Negative Negative [place] Comment:Testing performed by : [address] [address] Bilirubin, ur Negative Negative [place] Comment:Testing performed by : [address] [address] Blood, ur 2+(A) Negative [place] Comment:Testing performed by : [address] [address] Urobilinogen, ur <2.0 <2.0 mg/dL [place] Comment:Testing performed by : [address], [place]., [address] Nitrite, ur Negative Negative [place] Comment:Testing performed by : [address] [address] Leukocyte esterase, ur 4+(A) Negative [place] Comment:Testing performed by : [address] [address] UA reflex comment Reflex to microscopic UA will be performed. [place] Comment:Testing performed by : [address], [place]., [address] Urine, bladder 12/22/2024 12 :00 PM CDT 12/22/2024 4:42 PM CDT Nilesh Beaulieu MD LAB MICROBIOLOGY - GENERAL ORDER CHUN Final Result [place] [address] [facility] Department [place] [address] * (ABNORMAL) Urinalysis, microscopic only (12/22/2024 12:00 PM CDT) WBC, ur >50(A) 0 - 5 /HPF Comment:Testing performed by : [address] [address] RBC, ur 21-50(A) 0 - 2 /HPF [place] Comment:Testing performed by : [address] [address] Epithelial cells, squamous, ur 21-50(A) 0 - 5 /HPF [place] Comment:Testing performed by : [address] [address] Bacteria, ur 3+(A) [place] Comment:Testing performed by : [address] [address] Mucous, ur Present(A) [place] Comment:Testing performed by : [address] [address] Culture Reflex Comment Reflex to urine culture will be performed. [place] Comment:Testing performed by : [address], [place]., [address] Urine, bladder 12/22/2024 12 :00 PM CDT 12/22/2024 4:42 PM CDT Nilesh Beaulieu MD LAB URINE ORDERABLES Final Resul t Performing Organization Address [facility] Co de Phone Number [id number] [place] [address] * Urine culture Urine, bladder (12/22/2024 12:00 PM CDT) Report Final Report: Less than 100,000 colonies/mL (clinically insignificant growth based on current clinical standards) Comment:Testing performed by : [facility], [address] [place]., [address] Organism (CLINICALLY INSIGNIFICANT GROWTH [facility] Urine, bladder 12/22/2024 12 :00 PM CDT 12/22/2024 8:32 PM CDT Narrative [facility] - 12/23/2024 9:36 PM CDT Urine culture reflexed based upon urinalysis results. Testing performed by [facility] Microbiology Laboratory ([phone]) Nilesh Beaulieu MD LAB MICROBIOLOGY - GENERAL ORDER CHUN Final Result Performing Organization Address [facility] Co de Phone Number [address] [place] [address] * (ABNORMAL) POCT urinalysis dipstick (12/22/2024 11:58 AM CDT) Color, Urine, POC Yellow Clarity, ur, POC Cloudy(A) Clear Glucose, ur, POC Negative Negative Bilirubin, ur, POC Negative Negative Ketones, ur, POC Negative Negative Specific [place], POC 1.015 1.003 - 1.030 Blood, ur, POC 2+(A) Negative pH, ur, POC 6.0 5.0 - 8.0 Protein, ur, POC Trace(A) Negative Urobilinogen, urine, POC 0.2 0.2 - 1.0 mg/dL Nitrite, ur, POC Negative Negative Leukocytes, ur, POC 3+(A) Negative Lot Number 0 Urine 12/22/2024 11:5 8 AM CDT Nilesh Beaulieu MD POINT OF CARE TEST ORDERABLES Fi nal Result * DEVICE CHECK - REMOTE (12/15/2024 4:00 AM CDT) Anatomical Region Laterality Modality Other 12/15/2024 4:00 AM CDT Narrative 12/17/2024 12:23 AM CDT Interpretation Summary: Battery and Leads (BL) Normal parameters noted on battery and lead(s) --- 2 years remaining (this is an estimate based on prior usage) Presenting Rhythm (NE) Ventricular Sensing (VS) --- rate 60 Arrhythmic events (AE) Nonsustained SVT event(s) identified --- One NS-SVT episode. Duration: 7 seconds. Rate: 192 Transmission Information (TI) Device Summary Report Procedure Note Woody Hess MD - 12/17/2024 Interpretation Summary: Battery and Leads (BL) Normal parameters noted on battery and lead(s) --- 2 years remaining(this is an estimate based on prior usage) Presenting Rhythm (NE) Ventricular Sensing (VS) --- rate 60 Arrhythmic events (AE) Nonsustained SVT event(s) identified --- One NS-SVT episode. Duration: 7seconds. Rate: 192 Transmission Information (TI) Device Summary Report Woody Hess MD CV CARDIAC SERVICES PROCEDURES Final Result * DEVICE CHECK - IN OFFICE (11/28/2024 9:37 AM CDT) Anatomical Region Laterality Modality Other 11/28/2024 2:00 AM CDT Narrative 12/22/2024 5:39 PM CDT Interpretation Summary: Battery and Leads (BL) Normal parameters noted on battery and lead(s) --- BATTERY LONGEVITY ESTIMATE: 2 years Presenting Rhythm (NE) Ventricular Sensing (VS) --- Underlying rhythm: SR with PVC's and PACs Procedure Note Jim Butler MD PhD - 12/22/2024 Interpretation Summary: Battery and Leads (BL) Normal parameters noted on battery and lead(s) --- BATTERY LONGEVITYESTIMATE: 2 years Presenting Rhythm (NE) Ventricular Sensing (VS) --- Underlying rhythm: SR with PVC's and PACs us Woody Hess MD CV CARDIAC SERVICES PROCEDURES Final Result * Urine culture Urine, clean voided (11/14/2024 10:42 AM CDT) Report Final Report: Less than 100,000 colonies/mL (clinically insignificant growth based on current clinical standards) Comment:Testing performed by : [facility], [address] [place]., [address] Organism (CLINICALLY INSIGNIFICANT GROWTH [facility] Urine, clean voided 11/14/2024 10:42 AM CDT 11/14/2024 5:40 PM CDT Narrative [facility] - 11/16/2024 1:43 PM CDT Testing performed by [facility] Microbiology Laboratory ([phone]) us Cely Minor MANAGER MEDICAL LAB MICROBIOLOGY - GENERA L ORDERABLES Final Result [facility] [address] [address] Department [place] [address] * (ABNORMAL) POCT urinalysis dipstick (11/14/2024 10:39 AM CDT) Color, Urine, POC Yellow Clarity, ur, POC Cloudy(A) Clear Glucose, ur, POC Negative Negative Bilirubin, ur, POC Negative Negative Ketones, ur, POC Negative Negative Specific [place], POC 1.015 1.003 - 1.030 Blood, ur, POC Moderate(A) Negative pH, ur, POC 6.0 5.0 - 8.0 Protein, ur, POC 100.(A) Negative Urobilinogen, urine, POC 0.2 0.2 - 1.0 mg/dL Nitrite, ur, POC Negative Negative Leukocytes, ur, POC Large(A) Negative Lot Number [id number] Urine 11/14/2024 10:3 9 AM CDT Cely Minor MANAGER MEDICAL POINT OF CARE TEST ORDERA BLES Final Result * (ABNORMAL) POCT urinalysis dipstick (10/26/2024 11:44 AM CDT) Color, Urine, POC Yellow Clarity, ur, POC Turbid(A) Clear Glucose, ur, POC Negative Negative Bilirubin, ur, POC Negative Negative Ketones, ur, POC Negative Negative Specific [place], POC 1.015 1.003 - 1.030 Blood, ur, POC Small(A) Negative pH, ur, POC 6.0 5.0 - 8.0 Protein, ur, POC 30.(A) Negative Urobilinogen, urine, POC 0.2 0.2 - 1.0 mg/dL Nitrite, ur, POC Negative Negative Leukocytes, ur, POC Moderate(A) Negative Lot Number [id number] Urine 10/26/2024 11:4 4 AM CDT Sherry Watkins MANAGER MEDICAL POINT OF CARE TEST ORDERABLES Fi nal Result * (ABNORMAL) Urine culture Urine, clean voided (10/26/2024 11:44 AM CDT) Report Final Report: Greater than or equal to 100,000 colonies/mL of Klebsiella pneumoniae (.) Comment:Testing performed by : [facility], [address] [place] [address] Organism KLEBSIELLA PNEUMONIAE [place] Urine, clean voided 10/26/2024 11:44 AM CDT 10/27/2024 12:55 AM CDT Narrative [place] CH - 10/28/2024 4:45 PM CDT Testing performed by [facility] Microbiology Laboratory ([phone]) Organism Antibiotic Method Susceptibility Klebsiella pneumoniae Ampicillin INTERPRETATION Resistant Klebsiella pneumoniae Cefazolin INTERPRETATION Susceptible Klebsiella pneumoniae Nitrofurantoin INTERPRETATION Intermediate Klebsiella pneumoniae Gentamicin INTERPRETATION Susceptible Klebsiella pneumoniae Trimethoprim with Sulfamethoxazole INTERPRETATION Susceptible Klebsiella pneumoniae Meropenem INTERPRETATION Susceptible Klebsiella pneumoniae Cefepime INTERPRETATION Susceptible Klebsiella pneumoniae Ciprofloxacin INTERPRETATION Susceptible Klebsiella pneumoniae Ceftazidime INTERPRETATION Susceptible Klebsiella pneumoniae Ceftriaxone INTERPRETATION Susceptible Klebsiella pneumoniae Piperacillin/Tazobactam INTERPRE TATION Intermediate Klebsiella pneumoniae Cephalexin INTERPRETATION Susceptible Klebsiella pneumoniae Cefuroxime-axetil INTERPRETATION Susceptible Klebsiella pneumoniae Cefdinir INTERPRETATION Susceptible Sherry Watkins NP LAB MICROBIOLOGY - GENERAL ORDER CHUN Final Result Performing Organization Address City/State/ZIP Co ut Phone Number [place] [address] [address] Department [place] [address] * NE REMOVAL IMPACTED CERUMEN INSTRUMENTATION UNILAT, NE REMOVAL IMPACTED CERUMEN IRRIGATION/LVG UNILAT (10/26/2024 10:45 AM CDT) Narrative Sherry Watkins NP - 10/26/2024 10:45 AM CDT Sherry Watkins NP 10/26/2024 12:35 PM Ear Cerumen Removal Performed by: Sherry Watkins NP Authorized by: Sherry Watkins NP Consent Given by: Patient Verbal consent obtained: Yes Written consent obtained: Yes Risks, alternatives, and patient questions discussed: Yes Location: Bilateral L ear cerumen impacted?: Yes L ear method of removal: Irrigation and instrumentation L ear instrumentation: Curette L ear magnification: Otoscope R ear cerumen impacted?: Yes R ear method of removal: Instrumentation and irrigation R ear instrumentation: Curette R ear magnification: Otoscope Inspection: TM intact Hearing quality: Normal Patient tolerance: Patient tolerated the procedure well with no immediate complications Sherry Watkins NP IN CLINIC/BEDSIDE ORDERABLES Fin al Result * HM DEXA SCAN (01/16/2022) Historical Provider MD HEALTH MAINTENANCE Final Result from Last 3 Months or Most Recently Relevant to Health Maintenance Insurance [employer] MEDICARE [facility] [employer] MEDICARE Advance Directives For more information, please contact: [phone] * Full Code (Latest Code Status on File) Date Activated Date Inactivated Comments 09/11/2024 1:46 PM 09/15/2024 4:51 PM * Full Code Date Activated Date Inactivated Comments 04/30/2021 7:15 PM 05/01/2021 2:26 PM * Full Code Date Activated Date Inactivated Comments 11/24/2018 9:37 PM 11/25/2018 6:35 PM * Full Code Date Activated Date Inactivated Comments 02/03/2018 6:06 PM 02/05/2018 5:04 PM * Full Code Date Activated Date Inactivated Comments 01/25/2018 7:50 AM 01/25/2018 12:16 PM Care Teams Math And Physics Instructor Relationship Specialty Start Date End Date Hipolito Chowdhury MD [address] [place] [address] PCP - General Family Medicine 05/05/23 Alena Meza, endocrinology teacher Failure Coordinator 01/07/22 Brittany Tucker, endocrinology teacher Failure Coordinator 07/15/22 Nilesh Beaulieu MD [address] [place] [address] Consulting Physician Urology 09/15/24
--- OUTSIDE RECORDS SUMMARY | 2025-01-17 10:53 | XMS_ITS | Encounter Summary ---
Author Organization [facility] Health Address [address] [place] [address] Care Team Providers Care Bleach Analyst Name Role Phone Mario Franklin MD Primary Care Provider + Julian Villegas MD Unavailable [phone] Hipolito Chowdhury MD Primary Care Provider [phone] Encounter Details Date Type Department Care Team (Late st Contact Info) Description 05/24/2012 [facility] Outpatient Visit [facility] [address] [place] [address] Unknown, Provider Social History Tobacco Use Types Packs/Day Years Used Date Smoking Tobacco: Never Smokeless Tobacco: Never Alcohol Use Standard Drinks/Week Comments No 0 (1 standard drink = 0.6 oz pur e alcohol) Comments Unknown Sex and Gender Information Value Date Recorded Sex Assigned at Not on file Legal Sex Female 1:36 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
--- OUTSIDE RECORDS SUMMARY | 2025-01-17 10:53 | XMS_ITS | Encounter Summary ---
Author Organization [facility] Address [address] [place] [address] Care Team Providers Care Courtroom Deputy Or Calendar Clerk Name Role Phone Doug Castro MD Unavailable [phone] None, Provider Primary Care Provider Unavaila ble Encounter Details Date Type Department Care Team (Late st Contact Info) Description 09/09/2012 Abstract [facility] Conversion Md, Generic Conversion, Social History Tobacco Use Types Packs/Day Years [...] on filedocumented in this encounter Care Teams Courtroom Deputy Or Calendar Clerk Relationship Specialty Start Date End Date Doug Castro MD [address] [phone] PCP - Med Group - [facility] Attributed Provider 04/12/19 06/07/21 None, ProviderMD PCP - General 12/30/19 documented as of this encounter
--- OUTSIDE RECORDS SUMMARY | 2025-01-17 10:53 | XMS_ITS | Encounter Summary ---
Author Organization [facility] Address [address] [place] [address] Care Team Providers Care Svp Research And Strategic Analysis Name Role Phone Doug Castro MD Unavailable None, Provider Primary Care Provider Unavaila ble Encounter Details Date Type Department Care Team (Late st Contact Info) Description 04/13/2017 Abstract [facility] Clinics Conversion Md, Generic Conversion, Social History Tobacco [...] on filedocumented in this encounter Care Teams Svp Research And Strategic Analysis Relationship Specialty Start Date End Date Doug Castro MD [address] [phone] PCP - Med Group - [facility] Attributed Provider 04/12/19 06/07/21 None, ProviderMD PCP - General 12/30/19 documented as of this encounter
--- OUTSIDE RECORDS SUMMARY | 2025-01-17 10:53 | XMS_ITS | Encounter Summary ---
Author Organization [facility] Address [address] [place] [address] Care Team Providers Care Facilitator Name Role Phone Doug Castro MD Unavailable None, Provider Primary Care Provider Unavaila ble Encounter Details Date Type Department Care Team (Late st Contact Info) Description 03/14/2014 Abstract [facility] Clinics Conversion , Generic Conversion, Social History Tobacco Use Types [...] on filedocumented in this encounter Care Teams Facilitator Relationship Specialty Start Date End Date Doug Castro MD [address] [phone] PCP - Med Group - [facility] Attributed Provider 04/12/19 06/07/21 None, ProviderMD PCP - General 12/30/19 documented as of this encounter
--- OUTSIDE RECORDS SUMMARY | 2025-01-17 10:53 | XMS_ITS | Clinical Summary ---
Author Organization [facility] Address [address] [address] Care Team Providers Care Fire Lieutenant Marine Name Role Phone Julian Villegas MD Unavailable [phone] Hipolito Chowdhury MD Primary Care Provider [phone] Source Comments [facility],non-owned Affiliates and Associated Physician Practices is amultiple site organization consisting of ambulatory clinics and hospital sitesin [place], [place], [place] and [place]. This disclosure is being madepursuant to the Care Everywhere program and may not contain all information available regarding this patient. Last updated 18.[facility] Allergies No known active allergies Medications * Be aware that medications may not be up to date on this document. Alwaysverify current medications with the patient. traMADol (ULTRAM) 50 MG tablet 1 (one) tablet every 6 hours Active Multiple Vitamin (MV-ONE PO) 1 Tab as directed. Active levothyroxine (SYNTHROID) 50 MCG tablet Take 1 (one) tablet by mouth daily before breakfast Instructed to take AM of surgery Active omeprazole (PRILOSEC) 40 MG capsule Take 1 (one) capsule by mouth 2 times daily Instructed to take AM of surgery Active aspirin EC 81 MG TBEC Take 1 Tab by mouth once daily. 2 Active irbesartan (Avapro) 150 MG tablet Take 1 (one) tablet by mouth at bedtime 4 Active lovastatin (Mevacor) 40 MG tablet Take 1 (one) tablet by mouth once daily Active magnesium oxide (Mag-Ox) 400 MG tablet Take 1 (one) tablet by mouth every morning 3 Active albuterol HFA (Proventil; Ventolin; Proair) 108 (90 Base) MCG/ACT inhaler Inhale 2 (two) puffs by mouth every 4 hours as needed 5 Active acetaminophen CR (Tylenol Arthritis Pain) 650 MG tablet Take by mouth Ac tive metoprolol succinate XL 24hr (Toprol XL) 50 MG tablet Take 1 (one) tablet by mouth once daily Active Yuvafem 10 MCG vaginal tablet INSERT 1 TABLET (10 MCG TOTAL) INTO THE VAGINA DAILY Active diphenhydrAMINE -APAP, sleep, (Tylenol PM Es) 25-500 MG tablet Take 1 (one) tablet by mouth Active trospium ER 24hr (Sanctura XR) 60 MG capsule Take 1 (one) capsule by mouth once daily 90 capsule 1 5 Active methenamine hippurate (Hiprex) 1 GM tablet Take 1 (one) tablet by mouth 2 times daily 60 tablet 4 5 Active ascorbic acid (Vitamin C) 500 MG tablet Take 1 (one) tablet by mouth 2 times daily 60 tablet 3 5 Active phenazopyridine (Pyridium) 200 MG tablet Take 1 (one) tablet by mouth 3 times daily with meals 12 tablet 5 Active gabapentin (Neurontin) 300 MG capsule Take 1 (one) capsule by mouth 3 times daily 90 capsule 5 Active nitrofurantoin monohyd macro crystals (Macrobid) 100 MG capsule Take 1 (one) capsule by mouth 2 times daily with morning and evening meal 14 capsule 5 Active Active Problems Problem Noted Date Diagnosed Date LV dysfunction 04/15/2012 Mitral valve disorder Overview (03/08/2015): Mitral Valve Disorder Social History Tobacco Use Types Packs/Day Years Used Date Smoking Tobacco: Never Smokeless Tobacco: Never Tobacco Cessation:Counseling Given: No Alcohol Use Standard Drinks/Week Comments No 0 (1 standard drink = 0.6 oz pur e alcohol) Comments No Sex and Gender Information Value Date Recorded Sex Assigned at Not on file Legal Sex Female 1:36 PM 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 Gender Identity Not on file Sexual Orientation Not on file Last Filed Vital Signs Vital Sign Reading Time Taken Comments Blood Pressure 140/87 08/11/2024 1:22 PM WEIGHTER Pulse 103 08/11/2024 1:22 PM WEIGHTER Temperature 36.7 C (98.1 F) 08/11/2024 1:22 PM WEIGHTER Respiratory Rate 18 08/11/2024 1:22 PM WEIGHTER Oxygen Saturation 95% 08/11/2024 1:22 PM WEIGHTER Inhaled Oxygen Concentration 30% 01/20/2012 6 :00 PM CDT Weight 93 kg (205 lb) 08/11/2024 1:22 PM WEIGHTER Height 157.5 cm (5' 2) 08/11/2024 1:22 PM WEIGHTER Body Mass Index 37.49 08/11/2024 1:22 PM WEIGHTER Plan of Treatment Health Maintenance Due Date Last Done Comments DTAP/TDAP/TD VACCINES (1 - Tdap) 1957 PNEUMOCOCCAL VACCINE 50+ (1 of 1 - PCV) 1988 ZOSTER VACCINE (1 of 2) 1988 Respiratory Syncytial Virus (RSV) Vaccine Pt: or over 60 yrs (1 - 1-dose 75+ series) 2013 COVID-19 VACCINE (2 - season) 2024 07/13/2020 DEPRESSION SCREENING 06/08/2024 MEDICARE AWV CALENDAR YEAR 2024 INFLUENZA VACCINE (#1) 2025 , 02/06/2023, 02/21/2021, Additional history exists BONE DENSITY TESTING Completed 01/16/2022, 07/27/19 20 HEPATITIS B VACCINE Aged Out No longe r eligible based on patient's age to complete this topic HIB VACCINE Aged Out No longer eligi ble based on patient's age to complete this topic HPV VACCINE Aged Out No longer eligi ble based on patient's age to complete this topic MENINGOCOCCAL (Group B) VACCINE SHARED DECISION-MAKING Aged Out No longer eligible based on patient's age to complete this topic MENINGOCOCCAL GROUPS A/C/Y/W VACCINE Aged Out No longer eligible based on patient's age to complete this topic Insurance AETNA MEDICARE ADV Advance Directives Documents on File Type Date Recorded Patient Roving Can Tender Expl anation Adv Directive/Living Will/POA 01/27/2012 2:50 PM * FULL RESUSCITATION (Latest Code Status on File) Date Activated Date Inactivated Comments 01/20/2012 3:09 PM 01/26/2012 4:24 PM Care Teams Fire Lieutenant Marine Relationship Specialty Start Date End Date Hipolito Chowdhury MD [address] [place] [address] PCP - General Internal Medicine 04/05/24 Julian Villegas MD [address] [place] [address] -[phone] (Work) Cardiovascular Disease 11/26/11
--- OUTSIDE RECORDS SUMMARY | 2025-01-17 10:53 | XMS_ITS | Encounter Summary ---
Author Organization [facility] Address [address] [place] [address] Care Team Providers Care Foundry Operator Name Role Phone Doug Castro MD Unavailable None, Provider Primary Care Provider Unavaila ble Encounter Details Date Type Department Care Team (Late st Contact Info) Description 03/04/2012 Abstract [facility] Clinics Conversion , Generic Conversion, Social [...] on filedocumented in this encounter Care Teams Foundry Operator Relationship Specialty Start Date End Date Doug Castro MD [address] [phone] PCP - Med Group - [facility] Attributed Provider 04/12/19 06/07/21 None, ProviderMD PCP - General 12/30/19 documented as of this encounter
--- OUTSIDE RECORDS SUMMARY | 2025-01-17 10:53 | XMS_ITS | Encounter Summary ---
Author Organization [facility] Address [address] [place] [address] Care Team Providers Care Supervisory Clerk Name Role Phone Doug Castro MD Unavailable None, Provider Primary Care Provider Unavaila ble Encounter Details Date Type Department Care Team (Late st Contact Info) Description 08/17/2014 Abstract [facility] CONVERSION [address] [place] [address] , Generic ConversionMD Social History Tobacco Use Types Packs/Day Years [...] on filedocumented in this encounter Care Teams Supervisory Clerk Relationship Specialty Start Date End Date Doug Castro MD [address] [place] [phone] PCP - Med Group - [facility] Attributed Provider 04/12/19 06/07/21 None, ProviderMD PCP - General 12/30/19 documented as of this encounter
--- OUTSIDE RECORDS SUMMARY | 2025-01-17 10:53 | XMS_ITS | Encounter Summary ---
Author Organization [facility] Address [address] [place] [address] Care Team Providers Care Servicing Manager Name Role Phone Doug Castro MD Unavailable None, Provider Primary Care Provider Unavaila ble Encounter Details Date Type Department Care Team (Late st Contact Info) Description 09/15/2013 Abstract [facility] [...] on filedocumented in this encounter Care Teams Servicing Manager Relationship Specialty Start Date End Date Doug Castro MD [address] [phone] PCP - Med Group - [facility] Attributed Provider 04/12/19 06/07/21 None, ProviderMD PCP - General 12/30/19 documented as of this encounter
--- OUTSIDE RECORDS SUMMARY | 2025-01-17 10:53 | XMS_ITS | Encounter Summary ---
Author Organization [facility] Address [address] [place] [address] Care Team Providers Care Snow Blower Name Role Phone Doug Castro MD Unavailable None, Provider Primary Care Provider Unavaila ble Encounter Details Date Type Department Care Team (Late st Contact Info) Description 06/09/2013 Abstract [facility] Conversion Md, Generic Conversion, Social History Tobacco [...] on filedocumented in this encounter Care Teams Snow Blower Relationship Specialty Start Date End Date Doug Castro MD [address] [phone] PCP - Med Group - [facility] Attributed Provider 04/12/19 06/07/21 None, ProviderMD PCP - General 12/30/19 documented as of this encounter
--- OUTSIDE RECORDS SUMMARY | 2025-01-17 10:53 | XMS_ITS | Encounter Summary ---
Author Organization [facility] Address [address] [place] [address] Care Team Providers Care Ultrasound Technologist Sonographer Name Role Phone Doug Castro MD Unavailable None, Provider Primary Care Provider Unavaila ble Encounter Details Date Type Department Care Team (Late st Contact Info) Description 09/12/2014 Abstract [facility] Conversion , Generic Conversion, Social [...] on filedocumented in this encounter Care Teams Ultrasound Technologist Sonographer Relationship Specialty Start Date End Date Doug Castro MD [address] [phone] PCP - Med Group - [facility] Attributed Provider 04/12/19 06/07/21 None, ProviderMD PCP - General 12/30/19 documented as of this encounter
--- OUTSIDE RECORDS SUMMARY | 2025-01-17 10:53 | XMS_ITS | Encounter Summary ---
Author Organization [facility] Address [address] [place] [address] Care Team Providers Care Metal Stud Framer Name Role Phone Doug Castro MD Unavailable None, Provider Primary Care Provider Unavaila ble Encounter Details Date Type Department Care Team (Late st Contact Info) Description 06/14/2015 Abstract [facility] Conversion , Generic Conversion, Social [...] on filedocumented in this encounter Care Teams Metal Stud Framer Relationship Specialty Start Date End Date Doug Castro MD [address] [phone] PCP - Med Group - [facility] Attributed Provider 04/12/19 06/07/21 None, ProviderMD PCP - General 12/30/19 documented as of this encounter
--- OUTSIDE RECORDS SUMMARY | 2025-01-17 10:53 | XMS_ITS | Clinical Summary ---
Author Organization [facility] Address [address] [place] [address] Phone Care Team Providers Care Qa Automation Architect Name Role Phone Omer Guerrero MD Primary Care Provider [phone] Allergies No known active allergies Medications acetaminophen (TYLENOL 8 HOUR) 650 MG 8 hr tablet Take by mouth Active alendronate (FOSAMAX) 70 MG tablet Take 70 mg by mouth 1 (one) time per week 0 Active benzonatate (TESSALON) 100 MG capsule TAKE 1 CAPSULE BY MOUTH TWICE A DAY NEEDED FOR COUGH 0 Active fluticasone (FLONASE) 50 MCG/ACT nasal spray Administer 2 sprays into affected nostril(s) daily 9 Active levothyroxine (SYNTHROID) 75 MCG tablet Take 75 mcg by mouth 1 (one) time each day 0 Active Loratadine 10 MG capsule Take 1 tablet by mouth daily Active montelukast (SINGULAIR) 10 MG tablet Take 10 mg by mouth 1 (one) time each day 0 Active omeprazole (PriLOSEC) [address] capsule Take by mouth 1 (one) time each day 1 Active SUMAtriptan Succinate 4 MG/0.5ML solution auto-injector 1 mL Active traMADol (ULTRAM) 50 MG tablet Take 50 mg by mouth 3 (three) times a day if needed 1 Active Calcium Carbonate-Vitam in D3 600-400 MG-UNIT tablet Take 1 tablet by mouth 2 times daily Active ALUMINUM HYDROXIDE GEL PO Take 5 mL by mouth Active lovastatin (MEVACOR) 40 MG tablet Take 40 mg by mouth 1 (one) time each day 0 Active Multiple Vitamins-Minera ls (One-A-Day Womens Mind & Body) tablet Take by mouth Act addy Methylcellulose , Laxative, 500 MG tablet 500 mg Active metoprolol succinate XL (TOPROL-XL) 50 MG 24 hr tablet Take 50 mg by mouth 1 (one) time each day 1 Active diphenhydrAMINE -acetaminophen (TYLENOL PM) 25-500 MG per tablet Take 1 tablet by mouth Active magnesium oxide 400 (240 Mg) MG tablet Take 1 tablet by mouth 1 (one) time each day 30 tablet 11 2 Active Premarin vaginal cream INSERT 2 GRAMS INTO VAGINA 2 TIMES A WEEK 2 Active losartan (COZAAR) 100 MG tablet TAKE 1 TABLET BY MOUTH 1 TIME EACH DAY 90 tablet 1 2 Active Active Problems Problem Noted Date Diagnosed Date Stage 3b chronic kidney disease 07/06/2020 Automatic implantable cardiac defibrillator in s itu 04/19/2019 Gastro-esophageal reflux disease without esophag itis 05/25/2018 Congestive heart failure 07/17/2014 Obstructive sleep apnea syndrome 07/17/2014 Hyperlipidemia 05/13/2012 Hypertension 05/13/2012 Mitral valve disorder 04/27/2012 Overview (07/06/2020): Mitral Valve Disorder Mitral Valve Disorder Atherosclerosis of arteries of the extremities 0 01/22/2012 Immunizations Immunization Administration Dates Next Due Fluzone High-Dose 01/26/2020 Influenza Split High Dose Pr eservative Free IM 01/26/2020,01/26/2020,01/21/2017,02/18 Influenza TIV (IM) 02/20/2014,02/11/2013 Influenza Trivalent Adjuvanted 02/15/2019,2017 Influenza, Injectable, Quadrivalent 02/21/2021 Influenza, Unspecified 02/06/2021,2018,03/09/2018,02/19,02/20/2014,02/11/2013,03/03/2012 Pfizer Sars-cov-2 Vaccination 07/13/2020 Pneumococcal Conjugate 13-Valent 04/13/2014 Pneumococcal Polysaccharide 11/18/2017, 4 Social History Tobacco Use Types Packs/Day Years Used Date Smoking Tobacco: Never Smokeless Tobacco: Never Alcohol Use Standard Drinks/Week Comments Not Currently 0 (1 standard drink = 0.6 oz pur e alcohol) Comments Unknown Sex and Gender Information Value Date Recorded Sex Assigned at Not on file Legal Sex Female 10:42 AM MST Gender Identity Not on file Sexual Orientation Not on file Last Filed Vital Signs Vital Sign Reading Time Taken Comments Blood Pressure 122/70 02/26/2022 10:46 AM CDT Pulse 72 02/26/2022 10:46 AM CDT Temperature 35.8 C (96.5 F) 02/26/2022 10:46 AM CDT Respiratory Rate - - Oxygen Saturation - - Inhaled Oxygen Concentration - - Weight 91.2 kg (201 lb) 02/26/2022 10:46 AM CDT Height 152.4 cm (5') 02/26/2022 10:46 AM CDT Body Mass Index 39.26 02/26/2022 10:46 AM CDT Plan of Treatment Health Maintenance Due Date Last Done Comments COVID-19 Vaccine (2 - 2023-2 5 season) 2024 07/13/2020 Influenza Vaccine (#1) 2025 , 02/15/2019, 02/15/2019, Additional history exists Pneumococcal PPSV23/PCV13 65 + Years / Low and Medium Risk Completed 11/18/2017, 04/13/2014, 04/13/2014 Insurance [employer] Member Subscriber Plan / Payer (Ef fective 2019-Present) Name:Reena Montanez Member ID:[id number] PPO Relation to Subscriber:Self Name:Reena Montanez Subscriber ID:[id number] PPO Payer ID:[id number] Type:Not on file Address: [facility] [address] [place] [address] Care Teams Qa Automation Architect Relationship Specialty Start Date End Date Omer Guerrero MD [address] [phone] PCP - General Family Medicine 02/27/21
--- OUTSIDE RECORDS SUMMARY | 2025-01-17 10:53 | XMS_ITS | Encounter Summary ---
Author Organization [facility] Address [address] [place] [address] Care Team Providers Care Quality Control Expert Name Role Phone Doug Castro MD Unavailable None, Provider Primary Care Provider Unavaila ble Encounter Details Date Type Department Care Team (Late st Contact Info) Description 03/10/2013 Abstract [facility] Conversion , Generic Conversion, Social [...] on filedocumented in this encounter Care Teams Quality Control Expert Relationship Specialty Start Date End Date Doug Castro MD [address] [phone] PCP - Med Group - [facility] Attributed Provider 04/12/19 06/07/21 None, ProviderMD PCP - General 12/30/19 documented as of this encounter
--- OUTSIDE RECORDS SUMMARY | 2025-01-17 10:53 | XMS_ITS | Encounter Summary ---
Author Organization [facility] Address [address] [place] [address] Care Team Providers Care Ophthalmologist Name Role Phone Doug Castro MD Unavailable [phone] None, Provider Primary Care Provider Unavaila ble Encounter Details Date Type Department Care Team (Late st Contact Info) Description 04/17/2017 Abstract [facility] Conversion Chang Beth MD [address] [place] [address] Social History Tobacco Use Types Packs/Day Years Used Date Smoking Tobacco: Never Assessed Comments Unknown Sex and Gender Information Value Date Recorded Sex Assigned at Not on file Legal Sex Female 9:55 PM CDT Gender Identity Not on file Sexual Orientation Not on file documented as of this encounter Miscellaneous Notes * Letter - Chang Beth MD - 04/17/2017 12:00 AM CST 04-17-2017 [address]ena [address]z [address] [place], [place] [id number] : 1940 Radiology: Bilateral Screening Mammogram DEXA Encounter screen mammogram for malignant neoplasm of breast: Z12.31 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
--- OUTSIDE RECORDS SUMMARY | 2025-01-17 10:53 | XMS_ITS | Encounter Summary ---
Author Organization [facility] Address [address] [place] [address] Care Team Providers Care Paint Stock Clerk Name Role Phone Doug Castro MD Unavailable None, Provider Primary Care Provider Unavaila ble Encounter Details Date Type Department Care Team (Late st Contact Info) Description 01/12/2014 Abstract [facility] Conversion , Generic Conversion, Social History Tobacco [...] on filedocumented in this encounter Care Teams Paint Stock Clerk Relationship Specialty Start Date End Date Doug Castro MD [address] [phone] PCP - Med Group - [facility] Attributed Provider 04/12/19 06/07/21 None, ProviderMD PCP - General 12/30/19 documented as of this encounter
--- OUTSIDE RECORDS SUMMARY | 2025-01-17 10:53 | XMS_ITS | Encounter Summary ---
Author Organization [facility] Address [address] [place] [address] Care Team Providers Care Liquor Establishment Manager Name Role Phone Doug Castro MD Unavailable None, Provider Primary Care Provider Unavaila ble Encounter Details Date Type Department Care Team (Late st Contact Info) Description 04/06/2012 Abstract [facility] Conversion , Generic Conversion, Social [...] on filedocumented in this encounter Care Teams Liquor Establishment Manager Relationship Specialty Start Date End Date Doug Castro MD [address] [phone] PCP - Med Group - [facility] Attributed Provider 04/12/19 06/07/21 None, ProviderMD PCP - General 12/30/19 documented as of this encounter
--- OUTSIDE RECORDS SUMMARY | 2025-01-17 10:53 | XMS_ITS | Encounter Summary ---
Author Organization [facility] Address [address] [place] [address] Care Team Providers Care Line Manager Name Role Phone Doug Castro MD Unavailable None, Provider Primary Care Provider Unavaila ble Encounter Details Date Type Department Care Team (Late st Contact Info) Description 03/17/2017 Abstract [facility] Conversion , Generic Conversion, Social [...] on filedocumented in this encounter Care Teams Line Manager Relationship Specialty Start Date End Date Doug Castro MD [address] [phone] PCP - Med Group - [facility] Attributed Provider 04/12/19 06/07/21 None, ProviderMD PCP - General 12/30/19 documented as of this encounter
--- OUTSIDE RECORDS SUMMARY | 2025-01-17 10:53 | XMS_ITS | Encounter Summary ---
Author Organization [facility] Address [address] [place] [address] Phone Care Team Providers Care Scientist Engineer Name Role Phone Mario Franklin MD Primary Care Provider + Unknown, Notinfile Primary Care Provider Unavail able Mario Franklin MD Primary Care Provider + Unknown, Notinfile Primary Care Provider Unavail able Sandra, Aften L. QUILL STRIPPER Primary Care Provider [phone] Unknown, Notinfile Primary Care Provider Unavail able No, Physician Primary Care Provider [phone] Unknown, Notinfile Primary Care Provider Unavail able Sandra, Aften L. QUILL STRIPPER Primary Care Provider [phone] Unknown, Notinfile Primary Care Provider Unavail able Sandra, Aften L. QUILL STRIPPER Primary Care Provider [phone] Unknown, Notinfile Primary Care Provider Unavail able Sandra, Aften L. QUILL STRIPPER Primary Care Provider [phone] Unknown, Notinfile Primary Care Provider Unavail able Sandra, Aften L. QUILL STRIPPER Primary Care Provider [phone] Unknown, Notinfile Primary Care Provider Unavail able Unknown, Notinfile Primary Care Provider Unavail able Omer Guerrero Primary Care Provider [phone] Chang Cao MD Primary Care Provider [phone] Chang Cao MD Primary Care Provider [phone] Omer Guerrero Primary Care Provider Chang Cao MD Primary Care Provider [phone] Alena Meza RN Unavailable Unavailable Brittany Tucker RN Unavailable Unavaila Hipolito Lewis MD Primary Care Provider [phone] Nilesh Beaulieu MD Unavailable Nick Owen RN Unavailable [phone] Encounter Details Date Type Department Care Team (Late st Contact Info) Description 06/09/2017 Orders Only [facility]IN[facility] Provider, MD Cee [address] [place] [address] Social History Tobacco Use Types Packs/Day Years Used Date Smoking Tobacco: Never Assessed Comments Unknown Sex and Gender Information Value Date Recorded Sex Assigned at Not on file Legal Sex Female 2:05 AM CATERING SALES MANAGER Gender Identity Female 06/09/2023 3:00 PM CATERING SALES MANAGER Sexual Orientation Not on file documented as of this encounter Plan of Treatment Not on file documented as of this encounter Procedures Procedure Name Priority Date/Time Associated Diagnosis Comments CARDIOLOGY REPORT 06/09/2017 documented in this encounter Results * CARDIOLOGY REPORT (06/09/2017) Anatomical Region Laterality Modality Other Narrative 06/09/2017 Ordered by an unspecified provider. Historical Provider [facility] CASSIDY RODRIGUEZ Final Result documented in this encounter Visit Diagnoses Not on filedocumented in this encounter Additional Health Concerns Infection Onset Date Last Indicated Resolved Time Exposure, COVID-19 Comment:Added automatically based on COVID19 lab answers indicating exposure risk 05/12/2022 05/12/2022 05/22/2022 3:[address] COVID: Suspected 05/12/2022 05/12/2022 05/12/2022 5:10 PM CATERING SALES MANAGER documented as of this encounter Care Teams Scientist Engineer Relationship Specialty Start Date End Date Mario Franklin MD PCP - General 03/09/17 08/16/17 Unknown, Notinfile PCP - General 08/17/17 10/05/17 Mario Franklin MD PCP - General Family Medicine 10/06/17 12/16/17 Unknown, Notinfile PCP - General 12/17/17 12/24/17 Gabriele Flores, QUILL STRIPPER [address] [facility] [address] [place] [address] PCP - General Nurse Practitioner 12/25/17 12/27/17 Unknown, Notinfile PCP - General 12/28/17 01/28/18 No, Physician PCP - General 01/29/18 02/02/18 Unknown, Notinfile PCP - General 02/03/18 02/03/18 Gabriele Flores, QUILL STRIPPER [address] [facility] [address] [place] [address] PCP - General Nurse Practitioner 02/04/18 02/04/18 Unknown, Notinfile PCP - General 02/05/18 02/10/18 Gabriele Flores, QUILL STRIPPER [address] [facility] [address] [place] [address] PCP - General Nurse Practitioner 02/11/18 02/18/18 Unknown, Notinfile PCP - General 02/19/18 04/20/18 Gabriele Flores, QUILL STRIPPER [address] [facility] [address] [place] [address] PCP - General Nurse Practitioner 04/21/18 10/18/18 Unknown, Notinfile PCP - General 10/19/18 10/25/18 Gabriele Flores QUILL STRIPPER PCP - General Nurse Practitioner 10/26/18 12/19/19 Unknown, Notinfile PCP - General 12/20/19 05/22/20 Unknown, Notinfile PCP - General 05/23/20 02/18/21 Omer Guerrero, PA [address] [place] [address] PCP - General Physician Geology Associate 02/19/21 03/19/21 Chang Coa MD [address] [facility] [address] [facility] [address] [place] [address] PCP - General Family Medicine 03/20/21 04/11/21 Chang Cao MD [address] [facility] [address] [facility] [address] [place] [address] PCP - General 04/12/21 04/29/21 Omer Guerrero, PA [address] [facility] [address] [facility] [address] [facility] [address] [place] [address] PCP - General 04/30/21 05/19/21 Chang Cao MD [address] [facility] [address] [facility] [address] [address] PCP - General Family Medicine 05/20/21 05/04/23 Hipolito Chowdhury MD [address] [place] [address] PCP - General Family Medicine 05/05/23 Alena Meza, military pay clerk Failure Coordinator 01/07/22 Brittany Tucker, military pay clerk Failure Coordinator 07/15/22 Nilesh Beaulieu MD [address] [place] [address] Consulting Physician Urology 09/15/24 Nick Owen, RN [address] [place] [address] Optical Instrument Specialist 09/16/24 10/11/24 documented as of this encounter
--- OUTSIDE RECORDS SUMMARY | 2025-01-17 10:53 | XMS_ITS | Encounter Summary ---
Author Organization [facility] Address [address] [place] [address] Care Team Providers Care Binding Folder Machine Name Role Phone Doug Castro MD Unavailable None, Provider Primary Care Provider Unavaila ble Encounter Details Date Type Department Care Team (Late st Contact Info) Description 02/18/2017 Abstract [facility] Conversion , Generic Conversion, Social [...] on filedocumented in this encounter Care Teams Binding Folder Machine Relationship Specialty Start Date End Date Doug Castro MD [address] [phone] PCP - Med Group - [facility] Attributed Provider 04/12/19 06/07/21 None, ProviderMD PCP - General 12/30/19 documented as of this encounter
--- OUTSIDE RECORDS SUMMARY | 2025-01-17 10:53 | XMS_ITS | Encounter Summary ---
Author Organization [facility] Address [address] [place] [address] Care Team Providers Care Scissors Sharpener Name Role Phone Doug Castro MD Unavailable None, Provider Primary Care Provider Unavaila ble Encounter Details Date Type Department Care Team (Late st Contact Info) Description 03/08/2015 Abstract [facility] Conversion , Generic Conversion, Social History [...] on filedocumented in this encounter Care Teams Scissors Sharpener Relationship Specialty Start Date End Date Doug Castro MD [address] [phone] PCP - Med Group - [facility] Attributed Provider 04/12/19 06/07/21 None, ProviderMD PCP - General 12/30/19 documented as of this encounter
--- OUTSIDE RECORDS SUMMARY | 2025-01-17 10:53 | XMS_ITS | Encounter Summary ---
Author Organization [facility] Address [address] [place] [address] Phone Care Team Providers Care Bunghole Borer Name Role Phone Mario Franklin MD Primary Care Provider + Miscellaneous, Not In File Primary Care Provider Unavailable Mario Franklin MD Primary Care Provider + Unknown, Notinfile Primary Care Provider Unavail able Mario Franklin MD Primary Care Provider + Unknown, Notinfile Primary Care Provider Unavail able Mario Franklin MD Primary Care Provider + Unknown, Notinfile Primary Care Provider Unavail able Sandra, Aften L. LOAN SECRETARY Primary Care Provider [phone] Unknown, Notinfile Primary Care Provider Unavail able No, Physician Primary Care Provider [phone] Unknown, Notinfile Primary Care Provider Unavail able Sandra, Aften L. LOAN SECRETARY Primary Care Provider [phone] Unknown, Notinfile Primary Care Provider Unavail able Sandra, Aften L. LOAN SECRETARY Primary Care Provider [phone] Unknown, Notinfile Primary Care Provider Unavail able Sandra, Aften L. LOAN SECRETARY Primary Care Provider [phone] Unknown, Notinfile Primary Care Provider Unavail able Sandra, Aften L. LOAN SECRETARY Primary Care Provider [phone] Unknown, Notinfile Primary Care Provider Unavail able Unknown, Notinfile Primary Care Provider Unavail able Omer Guerrero Primary Care Provider + [phone] Chang Cao MD Primary Care Provider [phone] Chang Cao MD Primary Care Provider [phone] Omer Guerrero Primary Care Provider +- [phone] Chang Cao MD Primary Care Provider [phone] Alena Meza RN Unavailable Unavailable Brittany Tucker RN Unavailable UnavailHipolito Cannon MD Primary Care Provider + [phone] Nilesh Beaulieu MD Unavailable Nick Owen RN Unavailable [phone] Encounter Details Date Type Department Care Team (Late st Contact Info) Description 03/19/2016 Orders Only [facility] Provider, MD Cee [address] [place] [address] Social History Tobacco Use Types Packs/Day Years Used Date Smoking Tobacco: Never Assessed Comments Unknown Sex and Gender Information Value Date Recorded Sex Assigned at Not on file Legal Sex Female 2:05 AM DIRECTOR ENTERPRISE SALES Gender Identity Female 06/09/2023 3:00 PM DIRECTOR ENTERPRISE SALES Sexual Orientation Not on file documented as of this encounter Plan of Treatment Not on file documented as of this encounter Procedures Procedure Name Priority Date/Time Associated Diagnosis Comments CARDIOLOGY REPORT 03/19/2016 documented in this encounter Results * CARDIOLOGY REPORT (03/19/2016) Anatomical Region Laterality Modality Other Narrative 03/19/2016 Ordered by an unspecified provider. Historical Provider [facility] CARDIAC SERVICES CASSIDY RODRIGUEZ Final Result documented in this encounter Visit Diagnoses Not on filedocumented in this encounter Additional Health Concerns Infection Onset Date Last Indicated Resolved Time Exposure, COVID-19 Comment:Added automatically based on COVID19 lab answers indicating exposure risk 05/12/2022 05/12/2022 05/22/2022 3:[address] COVID: Suspected 05/12/2022 05/12/2022 05/12/2022 5:10 PM DIRECTOR ENTERPRISE SALES documented as of this encounter Care Teams Bunghole Borer Relationship Specialty Start Date End Date Mario Franklin MD PCP - General 02/25/15 09/15/16 Miscellaneous, Not In File PCP - General 09/16/16 10/12/16 Mario Franklin MD PCP - General 10/13/16 10/22/16 Unknown, Notinfile PCP - General 10/23/16 03/08/17 Mario Franklin MD PCP - General 03/09/17 08/16/17 Unknown, Notinfile PCP - General 08/17/17 10/05/17 Mario Franklin MD PCP - General Family Medicine 10/06/17 12/16/17 Unknown, Notinfile PCP - General 12/17/17 12/24/17 Gabriele Flores, LOAN SECRETARY [address] [place] [address] PCP - General Nurse Practitioner 12/25/17 12/27/17 Unknown, Notinfile PCP - General 12/28/17 01/28/18 No, Physician PCP - General 01/29/18 02/02/18 Unknown, Notinfile PCP - General 02/03/18 02/03/18 Gabriele Flores, LOAN SECRETARY [address] [place] [address] PCP - General Nurse Practitioner 02/04/18 02/04/18 Unknown, Notinfile PCP - General 02/05/18 02/10/18 Gabriele Flores, LOAN SECRETARY [address] [facility] [address] [place] [address] PCP - General Nurse Practitioner 02/11/18 02/18/18 Unknown, Notinfile PCP - General 02/19/18 04/20/18 Gabriele Flores LOAN SECRETARY [address] [facility] [address] [place] [address] PCP - General Nurse Practitioner 04/21/18 10/18/18 Unknown, Notinfile PCP - General 10/19/18 10/25/18 Gabriele Flores NP PCP - General Nurse Practitioner 10/26/18 12/19/19 Unknown, Notinfile PCP - General 12/20/19 05/22/20 Unknown, Notinfile PCP - General 05/23/20 02/18/21 Omer Guerrero PA [address] [place] [address] PCP - General Physician Conveyor Belt Repairer 02/19/21 03/19/21 Chang Cao MD [address] [place] [address] PCP - General Family Medicine 03/20/21 04/11/21 Chang Cao MD [address] [place] [address] PCP - General 04/12/21 04/29/21 Omer Guerrero PA [address] [place] [address] PCP - General 04/30/21 05/19/21 Chang Cao MD [address] [place] [address] PCP - General Family Medicine 05/20/21 05/04/23 Hipolito Chowdhury MD [address] [place] [address] PCP - General Family Medicine 05/05/23 Alena Meza, mixer operator Failure Coordinator 01/07/22 Brittany Tucker, mixer operator Failure Coordinator 07/15/22 Nilesh Beaulieu MD [address] [place] [address] Consulting Physician Urology 09/15/24 Nick Owen, JOZEF [address] [place] [address] [address] [place] [address] Support Service Tech 09/16/24 10/11/24 documented as of this encounter
--- OUTSIDE RECORDS SUMMARY | 2025-01-17 10:53 | XMS_ITS | Encounter Summary ---
Author Organization [facility] Address [address] [place] [address] Care Team Providers Care Golf Starter And Ranger Name Role Phone Doug Castro MD Unavailable None, Provider Primary Care Provider Unavaila ble Encounter Details Date Type Department Care Team (Late st Contact Info) Description 07/28/2016 Abstract [facility] Conversion , Generic Conversion, Social History Tobacco [...] on filedocumented in this encounter Care Teams Golf Starter And Ranger Relationship Specialty Start Date End Date Doug Castro MD [address] [phone] PCP - Med Group - [facility] Attributed Provider 04/12/19 06/07/21 None, ProviderMD PCP - General 12/30/19 documented as of this encounter
--- OUTSIDE RECORDS SUMMARY | 2025-01-17 10:53 | XMS_ITS | Encounter Summary ---
Author Organization [facility] Address [address] [place] [address] Care Team Providers Care Oil Burner Repairer Name Role Phone Doug Castro MD Unavailable None, Provider Primary Care Provider Unavaila ble Encounter Details Date Type Department Care Team (Late st Contact Info) Description 10/10/2014 Abstract [facility] Conversion , Generic Conversion, Social History [...] on filedocumented in this encounter Care Teams Oil Burner Repairer Relationship Specialty Start Date End Date Doug Castro MD [address] [phone] PCP - Med Group - [facility] Attributed Provider 04/12/19 06/07/21 None, ProviderMD PCP - General 12/30/19 documented as of this encounter
--- OUTSIDE RECORDS SUMMARY | 2025-01-17 10:53 | XMS_ITS | Encounter Summary ---
Author Organization [facility] Address [address] [facility] [address] Care Team Providers Care Power Systems Engineer Name Role Phone Mario Franklin MD Primary Care Provider + Julian Villegas MD Unavailable -[phone] Hipolito Chowdhury MD Primary Care Provider [phone] Encounter Details Date Type Department Care Team (Late st Contact Info) Description 04/06/2012 [facility] Outpatient Visit [facility] [address] [place] [address] Unknown, Provider Social History Tobacco Use Types Packs/Day Years Used Date Smoking Tobacco: Never Smokeless Tobacco: Never Alcohol Use Standard Drinks/Week Comments No 0 (1 standard drink = 0.6 oz pur e alcohol) Comments Unknown Sex and Gender Information Value Date Recorded Sex Assigned at Not on file Legal Sex Female 1:36 PM MANAGER CAR Gender Identity Not on file Sexual Orientation Not on file documented as of this encounter Plan of Treatment Not on file documented as of this encounter Visit Diagnoses Not on filedocumented in this encounter Care Teams Power Systems Engineer Relationship Specialty Start Date End Date Mario Franklin MD PCP - General 11/24/11 04/04/24 Hipolito Chowdhury MD [address] [place] [address] PCP - General Internal Medicine 04/05/24 Julian Villegas MD [address] [facility] [address] [place] [address] -x7 (Work) Cardiovascular Disease 11/26/11 documented as of this encounter
--- OUTSIDE RECORDS SUMMARY | 2025-01-17 10:53 | XMS_ITS | Encounter Summary ---
Author Organization [facility] Address [address] [place] [address] Care Team Providers Care Beehive Kiln Charcoal Burner Name Role Phone Doug Castro MD Unavailable None, Provider Primary Care Provider Unavaila ble Encounter Details Date Type Department Care Team (Late st Contact Info) Description 08/26/2015 Abstract [facility] Conversion Md, Generic Conversion, Social History [...] on filedocumented in this encounter Care Teams Beehive Kiln Charcoal Burner Relationship Specialty Start Date End Date Doug Castro MD [address] [phone] PCP - Med Group - [facility] Attributed Provider 04/12/19 06/07/21 None, ProviderMD PCP - General 12/30/19 documented as of this encounter
--- OUTSIDE RECORDS SUMMARY | 2025-01-17 10:53 | XMS_ITS | Encounter Summary ---
Author Organization [facility] Address [address] [place] [address] Care Team Providers Care Trumpet Teacher Name Role Phone Doug Castro MD Unavailable None, Provider Primary Care Provider Unavaila ble Encounter Details Date Type Department Care Team (Late st Contact Info) Description 05/25/2015 Abstract [facility] Conversion Mario Franklin MD [id number] [place] [address] Social History Tobacco Use Types Packs/Day Years Used Date Smoking Tobacco: Never Assessed Comments Unknown Sex and Gender Information Value Date Recorded Sex Assigned at Not on file Legal Sex Female 9:55 PM CDT Gender Identity Not on file Sexual Orientation Not on file documented as of this encounter Miscellaneous Notes * Letter - Mario Franklin MD - 05/25/2015 12:00 AM CST May 25, 2015 Reena Montanez [address] [place] [address] Dear Reena Montanez, Thank you for choosing [facility] for your health care needs. We appreciate the opportunity to help you maintain your well being. You recently had a mammogram. Your results came back normal. Please remember to follow up as discussed at your last appointment .If you have any questions please feel free to call the office at [phone], Option #3 or Option #1 to make an appointment to discuss these results. Respectfully Yours, Electronically Signed by: Mario Franklin MD Cc: Patient?s Medical Record LEGAL AFFAIRS documented in this encounter Plan of Treatment Not on file documented as of this encounter Visit Diagnoses Not on filedocumented in this encounter Care Teams Trumpet Teacher Relationship Specialty Start Date End Date Doug Castro MD [address] [facility] [address] [place] [phone] PCP - Med Group - [facility] Attributed Provider 04/12/19 06/07/21 None, ProviderMD PCP - General 12/30/19 documented as of this encounter
--- OUTSIDE RECORDS SUMMARY | 2025-01-17 10:53 | XMS_ITS | Encounter Summary ---
Author Organization [facility] Address [address] [place] [address] Care Team Providers Care Cake Press Operator Name Role Phone Doug Castro MD Unavailable None, Provider Primary Care Provider Unavaila ble Encounter Details Date Type Department Care Team (Late st Contact Info) Description 05/06/[address] [facility] Clinics Conversion Md, Generic Conversion, [...] on filedocumented in this encounter Care Teams Cake Press Operator Relationship Specialty Start Date End Date Doug Castro MD [address] [phone] PCP - Med Group - [facility] Attributed Provider 04/12/19 06/07/21 None, ProviderMD PCP - General 12/30/19 documented as of this encounter
--- OUTSIDE RECORDS SUMMARY | 2025-01-17 10:53 | XMS_ITS | Encounter Summary ---
Author Organization [facility] Address [address] [place] [address] Care Team Providers Care Phlebotomist Associate Name Role Phone Mario Franklin MD Primary Care Provider + Julian Villegas MD Unavailable [phone] Hipolito Chowdhury MD Primary Care Provider [phone] Encounter Details Date Type Department Care Team (Late st Contact Info) Description 05/06/2012 [facility] Outpatient Visit [facility] [address] [place] [address] Unknown, Provider Social History Tobacco Use Types Packs/Day Years Used Date Smoking Tobacco: Never Smokeless Tobacco: Never Alcohol Use Standard Drinks/Week Comments No 0 (1 standard drink = 0.6 oz pur e alcohol) Comments Unknown Sex and Gender Information Value Date Recorded Sex Assigned at Not on file Legal Sex Female 1:36 PM HIGH RISK CASE MANAGER Gender Identity Not on file Sexual Orientation Not on file documented as of this encounter Plan of Treatment Not on file documented as of this encounter Visit Diagnoses Not on filedocumented in this encounter Care Teams Phlebotomist Associate Relationship Specialty Start Date End Date Mario Franklin MD PCP - General 11/24/11 04/04/24 Hipolito Chowdhury MD [address] [place] [address] PCP - General Internal Medicine 04/05/24 Julian Villegas MD [address] [facility] [address] [place] [phone] (Work) Cardiovascular Disease 11/26/11 documented as of this encounter
--- OUTSIDE RECORDS SUMMARY | 2025-01-17 10:53 | XMS_ITS | Encounter Summary ---
Author Organization [facility] Address [address] [place] [address] Phone Care Team Providers Care Senior Software Systems Engineer Name Role Phone Mario Franklin [...] Care Provider Unavail able Sandra, Aften L. PSYCHOLOGIST PRIVATE PRACTICE Primary Care Provider [phone] Unknown, Notinfile Primary Care Provider Unavail able No, Physician Primary Care Provider [phone] Unknown, Notinfile Primary Care Provider Unavail able Sandra, Aften L. PSYCHOLOGIST PRIVATE PRACTICE Primary Care Provider [phone] Unknown, Notinfile Primary Care Provider Unavail able Sandra, Aften L. PSYCHOLOGIST PRIVATE PRACTICE Primary Care Provider [phone] Unknown, Notinfile Primary Care Provider Unavail able Sandra, Aften L. PSYCHOLOGIST PRIVATE PRACTICE Primary Care Provider [phone] Unknown, Notinfile Primary Care Provider Unavail able Sandra, Aften L. PSYCHOLOGIST PRIVATE PRACTICE Primary Care Provider [phone] Unknown, Notinfile Primary Care Provider Unavail able Unknown, Notinfile Primary Care Provider Unavail able Omer Guerrero Primary Care Provider + [phone] Chang Cao MD Primary Care Provider [phone] Chang Cao MD Primary Care Provider [phone] Omer Guerrero Primary Care Provider [phone] Chang Cao MD Primary Care Provider [phone] Alena Meza RN Unavailable Unavailable Brittany Tucker RN Unavailable UnavailHipolito Cannon MD Primary Care Provider + [phone] Nilesh Beaulieu MD Unavailable Nick Owen RN Unavailable [phone] Encounter Details Date Type Department Care Team (Late st Contact Info) Description 03/30/2015 Orders Only [facility] Provider, MD Cee [address] [place] [address] Social History Tobacco Use Types Packs/Day Years Used Date Smoking Tobacco: Never Assessed Comments Unknown Sex and Gender Information Value Date Recorded Sex Assigned at Not on file Legal Sex Female 2:05 AM POTATO SORTER Gender Identity Female 06/09/2023 3:00 PM POTATO SORTER Sexual Orientation Not on file documented as of this encounter Plan of Treatment Not on file documented as of this encounter Procedures Procedure Name Priority Date/Time Associated Diagnosis Comments CARDIOLOGY REPORT 03/30/2015 documented in this encounter Results * CARDIOLOGY REPORT (03/30/2015) Anatomical Region Laterality Modality Other Narrative 03/30/2015 Ordered by an unspecified provider. Historical Provider [facility] CARDIAC SERVICES CASSIDY RODRIGUEZ Final Result documented in this encounter Visit Diagnoses Not on filedocumented in this encounter Additional Health Concerns Infection Onset Date Last Indicated Resolved Time Exposure, COVID-19 Comment:Added automatically based on COVID19 lab answers indicating exposure risk 05/12/2022 05/12/2022 05/22/2022 3:[address] COVID: Suspected 05/12/2022 05/12/2022 05/12/2022 5:10 PM POTATO SORTER documented as of this encounter Care Teams Senior Software Systems Engineer Relationship Specialty Start Date End Date Mario Franklin MD PCP - General 02/25/15 09/15/16 Miscellaneous, Not In File PCP - General 09/16/16 10/12/16 Mario Franklin MD PCP - General 10/13/16 10/22/16 Unknown, Notinfile PCP - General 10/23/16 03/08/17 Mario Franklin MD PCP - General 03/09/17 08/16/17 Unknown, Notinfile PCP - General 08/17/17 10/05/17 Mairo Franklin MD PCP - General Family Medicine 10/06/17 12/16/17 Unknown, Notinfile PCP - General 12/17/17 12/24/17 Gabriele Flores, PSYCHOLOGIST PRIVATE PRACTICE [address] [place] [address] PCP - General Nurse Practitioner 12/25/17 12/27/17 Unknown, Notinfile PCP - General 12/28/17 01/28/18 No, Physician PCP - General 01/29/18 02/02/18 Unknown, Notinfile PCP - General 02/03/18 02/03/18 Gabriele Flores, PSYCHOLOGIST PRIVATE PRACTICE [address] [place] [address] PCP - General Nurse Practitioner 02/04/18 02/04/18 Unknown, Notinfile PCP - General 02/05/18 02/10/18 Gabriele Flores, PSYCHOLOGIST PRIVATE PRACTICE [address] [facility] [address] [place] [address] PCP - General Nurse Practitioner 02/11/18 02/18/18 Unknown, Notinfile PCP - General 02/19/18 04/20/18 Gabriele Flores PSYCHOLOGIST PRIVATE PRACTICE [address] [facility] [address] [place] [address] PCP - General Nurse Practitioner 04/21/18 10/18/18 Unknown, Notinfile PCP - General 10/19/18 10/25/18 Gabriele Flores NP PCP - General Nurse Practitioner 10/26/18 12/19/19 Unknown, Notinfile PCP - General 12/20/19 05/22/20 Unknown, Notinfile PCP - General 05/23/20 02/18/21 Omer Guerrero PA [address] [place] [address] PCP - General Physician Multiplex Operator 02/19/21 03/19/21 Chang Cao MD [address] [place] [address] PCP - General Family Medicine 03/20/21 04/11/21 Chang Cao MD [address] [place] [address] PCP - General 04/12/21 04/29/21 Omer Guerrero PA [address] [place] [address] PCP - General 04/30/21 05/19/21 Chang Cao MD [address] [place] [address] PCP - General Family Medicine 05/20/21 05/04/23 Hipolito Chowdhury MD [address] [place] [address] PCP - General Family Medicine 05/05/23 Alena Meza, manager cosmetics Failure Coordinator 01/07/22 Brittany Tucker, manager cosmetics Failure Coordinator 07/15/22 Nilesh Beaulieu MD [address] [place] [address] Consulting Physician Urology 09/15/24 Nick Owen, JOZEF [address] [place] [address] [address] [place] [address] Car Top Bolter 09/16/24 10/11/24 documented as of this encounter
--- OUTSIDE RECORDS SUMMARY | 2025-01-17 10:53 | XMS_ITS | Encounter Summary ---
Author Organization [facility] Address [address] [place] [address] Phone Care Team Providers Care Food Consultant Name Role Phone Unknown, Notinfile Primary Care Provider Unavail able Omer Guerrero Primary Care Provider [phone] Chang Cao MD Primary Care Provider [phone] Chang Cao MD Primary Care Provider [phone] Omer Guerrero Primary Care Provider [phone] Chang Cao MD Primary Care Provider Alena Meza RN Unavailable Unavailable Brittany Tucker RN Unavailable UnavailHipolito Cannon MD Primary Care Provider [phone] Nilesh Beaulieu MD Unavailable Nick Owen RN Unavailable [phone] Encounter Details Date Type Department Care Team (Latest Contact Info) Description 02/01/2021 Orders Only [facility] Scanning, Provider Social History Tobacco Use Types Packs/Day Years Used Date Smoking Tobacco: Never Smokeless Tobacco: Never Alcohol Use Standard Drinks/Week Comments No 0 (1 standard drink = 0.6 oz pur e alcohol) Overall Financial Resource Strain (CARDIA) Answe r Date Recorded Difficulty of Paying Living Expenses Patient dec lined 10/26/2018 Hunger Vital Sign Answer Date Recorded Worried About Running Out of Food in the Last Ye ar Patient declined 10/26/2018 Ran Out of Food in the Last Year Patient decline d 10/26/2018 PRAPARE - Transportation Answer Date Re corded Lack of Transportation (Medical) Patient decline d 10/26/2018 Lack of Transportation (Non-Medical) Patient dec lined 10/26/2018 Comments No Sex and Gender Information Value Date Recorded Sex Assigned at Not on file Legal Sex Female 2:05 AM STEAMBOAT CAPTAIN Gender Identity Female 06/09/2023 3:00 PM STEAMBOAT CAPTAIN Sexual Orientation Not on file Occupation Industry Job Start Date Job End Date retired Not on file Not on file Not on file documented as of this encounter Plan of Treatment Not on file documented as of this encounter Procedures Procedure Name Priority Date/Time Associated Diagnosis Comments CARDIOLOGY DOCUMENT SCAN 02/01/2021 documented in this encounter Results * SCAN - CARDIOLOGY (02/01/2021) Anatomical Region Laterality Modality Other us Provider Scanning [facility] CARDIAC SERVICES PROCEDURES Final Result documented in this encounter Visit Diagnoses Not on filedocumented in this encounter Additional Health Concerns Infection Onset Date Last Indicated Resolved Time Exposure, COVID-19 Comment:Added automatically based on COVID19 lab answers indicating exposure risk 05/12/2022 05/12/2022 05/22/2022 3:[address] COVID: Suspected 05/12/2022 05/12/2022 05/12/2022 5:10 PM STEAMBOAT CAPTAIN documented as of this encounter Care Teams Food Consultant Relationship Specialty Start Date End Date Unknown, Notinfile PCP - General 05/23/20 02/18/21 Omer Guerrero PA [address] [facility] [address] [address] PCP - General Physician Ironer Machine 02/19/21 03/19/21 Chang Cao MD [address] [address] PCP - General Family Medicine 03/20/21 04/11/21 Chang Cao MD [address] [facility] [address] [address] PCP - General 04/12/21 04/29/21 Omer Guerrero PA [address] [place] [address] PCP - General 04/30/21 05/19/21 Chang Cao MD [address] [place] [address] PCP - General Family Medicine 05/20/21 05/04/23 Hipolito Chowdhury MD [address] [place] [address] PCP - General Family Medicine 05/05/23 Alena Meza, glass technician/installer Failure Coordinator 01/07/22 Brittany Tucker, glass technician/installer Failure Coordinator 07/15/22 Nilesh Beaulieu MD [address] [place] [address] Consulting Physician Urology 09/15/24 Nick Owen, JOZEF [address] [place] [address] [address] [place] [address] Agricultural Technical Officer 09/16/24 10/11/24 documented as of this encounter
--- OUTSIDE RECORDS SUMMARY | 2025-01-17 10:53 | XMS_ITS | Encounter Summary ---
Author Organization [facility] Address [address] [place] [address] Care Team Providers Care Crusher Setter Name Role Phone Doug Castro MD Unavailable None, Provider Primary Care Provider Unavaila ble Encounter Details Date Type Department Care Team (Late st Contact Info) Description 05/24/2012 Abstract [facility] Conversion , Generic Conversion, Social [...] on filedocumented in this encounter Care Teams Crusher Setter Relationship Specialty Start Date End Date Doug Castro MD [address] [id number] PCP - Med [facility] - [facility] Attributed Provider 04/12/19 06/07/21 None, ProviderMD PCP - General 12/30/19 documented as of this encounter
--- OUTSIDE RECORDS SUMMARY | 2025-01-17 10:53 | XMS_ITS | Encounter Summary ---
Author Organization [facility] Address [address] [place] [address] Care Team Providers Care Consumer Loan Manager Name Role Phone Chang Cao MD Primary Care Provider [phone] Alena Meza RN Unavailable Unavailable Brittany uTcker RN Unavailable Unavaila Hipolito Lewis MD Primary Care Provider [phone] Nilesh Beaulieu MD Unavailable Nick Owen RN Unavailable [phone] Encounter Details Date Type Department Care Team (Late st Contact Info) Description 09/03/2021 Telephone [facility] Transplant Heart [address] [facility] [phone] [place] [address] Jennifer Dunne RN [address] [facility] [address] [place] [address] Social History Tobacco Use Types Packs/Day Years Used Date Smoking Tobacco: Never Smokeless Tobacco: Never Alcohol Use Standard Drinks/Week Comments No 0 (1 standard drink = 0.6 oz pur e alcohol) AUDIT-C Answer Date Recorded Q1: How often do you have a drink containing alc ohol? Never 09/05/2021 Average Number of Drinks Not on file 022 Q3: How often do you have si x or more drinks on one occasion? Never 09/05/2021 Overall Financial Resource Strain (CARDIA) Answe r Date Recorded Difficulty of Paying Living Expenses Patient dec lined 10/26/2018 PHQ-2 Answer Date Recorded PHQ-2 Total Score (If total score is 3 or more points, staff should administer the PHQ-9) 0 06/12/2021 Hunger Vital Sign Answer Date Recorded Worried [...] on file Legal Sex Female 2:05 AM CARE WORKER Gender Identity Female 06/09/2023 3:00 PM CARE WORKER Sexual Orientation Not on file Occupation Industry Job Start Date Job End Date retired Not on file Not on file Not on file documented as of this encounter Functional Status documented as of this encounter Plan of Treatment Not on file documented as of this encounter Visit Diagnoses Not on filedocumented in this encounter Additional Health Concerns Infection Onset Date Last Indicated Resolved Time Exposure, COVID-19 Comment:Added automatically based on COVID19 lab answers indicating exposure risk 05/12/2022 05/12/2022 05/22/2022 3:[address] COVID: Suspected 05/12/2022 05/12/2022 05/12/2022 5:10 PM CARE WORKER documented as of this encounter Care Teams Consumer Loan Manager Relationship Specialty Start Date End Date Chang Cao MD PCP - General Family Medicine 05/20/21 05/04/23 Hipolito Chowdhury MD [address] [place] [address] PCP - General Family Medicine 05/05/23 Alena Meza, vessel captain Failure Coordinator 01/07/22 Brittany Tucker, vessel captain Failure Coordinator 07/15/22 Nilesh Beaulieu MD [address] [place] [address] Consulting Physician Urology 09/15/24 Nick Owen, RN [address] [facility] [address] [place] [address] Harness And Bag Inspector 09/16/24 10/11/24 documented as of this encounter
--- OUTSIDE RECORDS SUMMARY | 2025-01-17 10:53 | XMS_ITS | Encounter Summary ---
Author Organization [facility] Address [address] [place] [address] Care Team Providers Care Hay Buckler Name Role Phone Doug Castro MD Unavailable [phone] None, Provider Primary Care Provider Unavaila ble Encounter Details Date Type Department Care Team (Late st Contact Info) Description 12/16/2012 Abstract [facility] Conversion Md, Generic Conversion, Social History [...] on filedocumented in this encounter Care Teams Hay Buckler Relationship Specialty Start Date End Date Doug Castro MD [address] [phone] PCP - Med [facility] - [facility] Attributed Provider 04/12/19 06/07/21 None, ProviderMD PCP - General 12/30/19 documented as of this encounter
== END 2025-01-17 10:10 | disposition home or self-care (01) ==
LOC: ANHBWCAUD 10:10
PROVIDERS: Visit Provider Family Medicine
DX: H90.3 Sensorineural hearing loss, bilateral (principal); H74.8X1 Other specified disorders of right middle ear and mastoid; H73.891 Other specified disorders of tympanic membrane, right ear
CPT/HCPCS: 92557; 92567

== ENCOUNTER 2025-01-31 11:00 | Outpatient (RCR) | payer SELFPAY | END 2025-02-14 23:59 | disposition home or self-care (01) | LOC: ANHBWCAUD 11:00 | DX: Z46.1 Encounter for fitting and adjustment of hearing aid (principal) | CPT/HCPCS: 99199; V5261 ==

== ENCOUNTER 2025-04-20 14:28 | Outpatient (CLI) | payer MEDICARE, SELFPAY ==
--- NOTE | ~2025-04-20 | XR_ITS ---
EXAMINATION: [id number], 04/20/2025 14:35 SCALE BALANCER HISTORY: Right Knee Pain COMPARISON: No comparisons available. Findings: No acute fracture or malalignment. arthroplasty is intact Soft tissues unremarkable. Impression: No acute fracture or malalignment. Reviewed, dictated and finalized at location P. E BALANCER Impression: No acute fracture or malalignment.
== END 2025-04-20 14:29 | disposition home or self-care (01) ==
LOC: MICIMG 14:30
PROVIDERS: PCP Family Medicine; Visit Provider Nurse Practitioner Family
DX: M25.561 Pain in right knee (principal); Z96.651 Presence of right artificial knee joint
CPT/HCPCS: 73560

== ENCOUNTER 2025-04-27 15:25 | Outpatient (CLI) | payer MEDICARE, SELFPAY ==
--- NOTE | ~2025-04-27 | CT_ITS ---
EXAMINATION: CT lumbar spine wo con COMPARISON: None HISTORY: Lumbar radiculopathy TECHNIQUE: Axial images were obtained through the spine without IV contrast. Coronal, sagittal reconstruction images were obtained from the axial views. CT scan performed using dose optimization techniques including the following automated exposure control; adjustment of mA and/or kV; use of iterative reconstruction technique. Automatic exposure control was used to reduce radiation dose. Permanent radiation dose record is archived to PACS. FINDINGS: There is a levoconvex scoliosis of the lower lumbar spine with a dextroconvex scoliosis of the upper lumbar spine with moderate loss of vertebral height throughout. No acute fracture or subluxation. 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 There is a left adrenal lesion measuring 2 x 2 cm incompletely evaluated, outpatient adrenal MRI is suggested. Soft tissues demonstrate left renal calculus measuring 3 mm with right renal calculi also noted, no gross hydronephrosis. Impression: 1. Severe degenerative changes. MRI suggested. 2. Incidental findings above Reviewed, dictated and finalized at location P. [facility] [employer] [facility] Impression: 1. Severe degenerative changes. MRI suggested. 2. Incidental findings above
== END 2025-04-27 15:26 | disposition home or self-care (01) ==
LOC: MICIMG 15:26
PROVIDERS: PCP Family Medicine; Visit Provider Nurse Practitioner Family
DX: M47.896 Other spondylosis, lumbar region (principal); M41.86 Other forms of scoliosis, lumbar region; R29.890 Loss of height; M48.061 Spinal stenosis, lumbar region without neurogenic claudication; E27.9 Disorder of adrenal gland, unspecified
CPT/HCPCS: 72131